=== PATIENT | female | born 1975 | race Caucasian/White ===

== ENCOUNTER → 2017-05-31 15:01 | Outpatient (CLI) | payer SELFPAY ==
--- NOTE | 2017-05-31 15:45 | CT_ITS ---
STUDY: CT SCAN OF THE LEFT HIP WITHOUT CONTRAST. REASON FOR EXAM: Female, 42 years old. Left hip pain. RADIATION DOSAGE (If Supplied By Facility): CTDIvol = ( 14.05 ) mGy, DLP = ( 403.31 ) mGycm. Individualized dose optimization techniques were used for this CT.? FLUOROSCOPY TIME (if supplied): ( ) minutes/seconds TECHNIQUE: Axial cuts were obtained through the region of the left without intravenous contrast infusion. Sagittal and coronal reconstruction images were obtained. 3-D images were also obtained. COMPARISON: None. FINDINGS: There is deformity of the femoral head with subchondral cystic/erosive changes. There is flattening of the articular surface of the femoral head. There is sclerosis and subchondral cystic changes of the acetabulum with thinning of the medial wall of the left acetabulum and protrusio acetabuli. There is gas in the left hip joint presenting vacuum phenomenon. The sacroiliac joint and to visualize symphysis pubis appear unremarkable. There is no evidence of acute fracture. There may be fluid or soft tissue density in the inferior aspect of the hip joint.. CT/Extremity Lower without Contra IMPRESSION: Narrowing, osteophytic changes and deformity of the left hip with protrusio acetabuli as described above. No demonstrated acute fracture. Electronically Signed: Mihc Chapa MD at 3:26 EST Tel , Service support ,
--- NOTE | 2017-05-31 16:03 | CT_ITS ---
STUDY: CT SCAN OF THE LEFT HIP WITHOUT CONTRAST. REASON FOR EXAM: Female, 42 years old. Left hip pain. RADIATION DOSAGE (If Supplied By Facility): CTDIvol = ( 14.05 ) mGy, DLP = ( 403.31 ) mGycm. Individualized dose optimization techniques were used for this CT.? FLUOROSCOPY TIME (if supplied): ( ) minutes/seconds TECHNIQUE: Axial cuts were obtained through the region of the left without intravenous contrast infusion. Sagittal and coronal reconstruction images were obtained. 3-D images were also obtained. COMPARISON: None. FINDINGS: There is deformity of the femoral head with subchondral cystic/erosive changes. There is flattening of the articular surface of the femoral head. There is sclerosis and subchondral cystic changes of the acetabulum with thinning of the medial wall of the left acetabulum and protrusio acetabuli. There is gas in the left hip joint presenting vacuum phenomenon. The sacroiliac joint and to visualize symphysis pubis appear unremarkable. There is no evidence of acute fracture. There may be fluid or soft tissue density in the inferior aspect of the hip joint.. CT/Coronals Sag Multi Obl 3-D Rec IMPRESSION: Narrowing, osteophytic changes and deformity of the left hip with protrusio acetabuli as described above. No demonstrated acute fracture. Electronically Signed: Mich Chapa MD at 3:26 EST Tel , Service support ,
== END ==
PROVIDERS: Family Provider Family Medicine; PCP Family Medicine; Visit Provider Specialist
DX: M25.552 Pain in left hip (principal)
CPT/HCPCS: 73700; 76377

== ENCOUNTER → 2017-06-26 11:55 | Outpatient (CLI) | payer SELFPAY ==
--- NOTE | 2017-06-26 12:05 | RAD_ITS ---
STUDY: X-RAY - CERVICAL SPINE REASON FOR EXAM: Female, 42 years old. Pre-op history of rheumatoid arthritis TECHNIQUE: 6 view(s) of the cervical spine were obtained. COMPARISON: None FINDINGS: There are degenerative changes of the anterior atlantoaxial articulation. The odontoid process shows a mild anterior angulation. There is straightening of the normal cervical lordosis. At C3-C4 there is slight anterolisthesis there is disc space narrowing. There is disc space narrowing at L4-L5 L5-S1 with spondylosis. There is multilevel facet arthropathy. Normal disc space heights. Normal visualized intervertebral neuroforamina. The soft tissue structures are unremarkable. RAD/Cerv Spine 4 or 5 Views IMPRESSION: Degenerative change. There is a mild angulated appearance of the odontoid without fracture line. This may represent a normal cortical variant, however recommend consideration for follow-up CT scan of the cervical spine to clarify. Degenerative change of the cervical spine. Electronically Signed: Kiah Berumen MD at 15:52 EDT Tel , Service support ,
== END ==
PROVIDERS: Family Provider Family Medicine; PCP Family Medicine; Visit Provider Family Medicine
DX: Z01.818 Encounter for other preprocedural examination (principal); M06.9 Rheumatoid arthritis, unspecified
CPT/HCPCS: 72050

== ENCOUNTER 2017-07-04 09:37 | Inpatient (IN) | payer SELFPAY ==
[2017-06-15 14:34] VITALS: BP 109/70; PULSE 92; RESP 16; TEMP 36; O2SAT 96; BMI 23.5
--- NOTE | 2017-06-15 14:58 | SDCEKG_ITS ---
Test Reason : Blood Pressure : / mmHG Vent. Rate : 088 BPM Atrial Rate : 088 BPM P-R Int : 148 ms QRS Dur : 072 ms QT Int : 348 ms P-R-T Axes : 069 064 048 degrees QTc Int : 421 ms Normal sinus rhythm Normal ECG Confirmed by DEE SCHMIDT ([id number]), image editor MOHSEN GURROLA ([id number]) on 06/18/2017 1:36:11 PM Referred By: Irwin Long Confirmed By:DEE SCHMIDT
[2017-06-15 15:48] LABS: Absolute Lymphocyte Count 2.45 X10^3/ul (0.83-4.51); Absolute Neutrophil Count 5.7 X10^3/uL (2.0-7.7); Basophil# 0.07 X10^3/uL; Basophil% 0.7 % (0-1); Hematocrit 33.8 % (37-47); Hemoglobin 10.8 g/dl (12.0-15.0); Lymphocyte # 2.45 X10^3/ul (4.0); Lymphocyte % 24.5 % (19-41); Mean Corpuscular Hgb 30.2 pg (27.0-32.0); Mean Corpuscular Volume 94.4 fL (81-99); Neutrophil # 5.67 X10^3/uL (2.7-7.7); Neutrophil % 56.7 % (47-70); POSITIVE COUNT NO; POSITIVE DIFFERENTIAL NO; POSITIVE MORPHOLOGY NO; Platelet Count 321 K/mm3 (150-450); RBC Distribution Width CV 13.8 % (11.6-14.6); RBC Distribution Width SD 47.8 fl (35.1-43.9); Red Blood Count 3.58 M/mm3 (4.2-5.4)
[2017-06-15 16:25] LABS: Anion Gap 12 (5-15); BUN 20 mg/dL (7-18); BUN/Creat Ratio 26.7 RATIO (10-20); Calcium,Total 8.1 mg/dL (8.5-10.1); Chloride 110 mmol/L (98-107); Creatinine, Serum 0.75 mg/dL (0.55-1.02); EST Glomerular Filtration Rate 91 mL/min (>60); Est Glom Filt Rate - Afr Amer 110 mL/min (>60); Estimated Creatinine Clearance 82.28 ml/min; Glucose 95 mg/dL (74-106); Potassium 3.5 mmol/L (3.5-5.1); Sodium Level 141 mmol/L (136-145)
--- NOTE | 2017-06-17 20:30 | PCM.HP.BLA ---
History and Physical DATE OF SURGERY: 07/04/2017 SCHEDULED PROCEDURE: Left total hip arthroplasty, posterior HISTORY OF PRESENT ILLNESS: This is a 42-year-old female who is been having ongoing pain in bilateral hips for approximately 11 years. She states the left hip is worse than the right hip. Pain is increased with going up and down stairs walking any amount of distance and sitting for extended periods of time. Pain is located in bilateral groins. Patient has a difficult time with activities of daily living including showering as well as shopping. Patient has tried rest, heat, elevation with minimal relief. She has tried home exercises with no relief in symptoms. She has been to a chiropractor in the past. Patient has been on oral medications consisting of ibuprofen. Patient also has been on prednisone, Humira, Enbrel, and lefluromide due to her rheumatoid arthritis. Patient is currently off Humira or Enbrel. She uses a walker for ambulatory assistance. She states her has to pick her up to place her in the car. Patient denies previous surgeries on bilateral hips. She currently denies any chest pain, shortness of breath, fevers chills, or recent infections. Patient has a medical history pertinent for hypertension and rheumatoid arthritis. After discussion with Dr. Conrado Long the patient would like to proceed with a left total hip arthroplasty posterior approach. We are obtaining surgical clearance from patient's primary care physician. REVIEW OF SYSTEMS: ROS: Const: Denies anorexia, anxiety, change in appetite, fever and weight change,hard of hearing, and vision problems. CV: Denies chest pain, heart murmur, irregular heartbeat and peripheral vascular disease. Resp: Denies asthma, cough, pneumonia, sleep apnea, shortness of breath, tuberculosis and wheezing. GI: Denies constipation, diarrhea, heartburn, nausea, bloody stools and vomiting, and difficulty swallowing. : . (F Genital Sx) Denies incontinence. Musculo: Denies leg swelling, trouble walking and weakness and limp. Skin: Denies Raynaud's, history of shingles and tattoo. Neuro: Denies ambulatory dysfunction, dizziness, numbness/tingling and tremor. Psych: Denies anxiety, depression, insomnia, mental illness and stress. Kar/Lymph: Denies anemia, bleeding/bruising tendency and past transfusion. Reviewed, no changes. PAST MEDICAL HISTORY: Advance Care Plan: No Advance Directives Effective Date: 06/07/2017 PMH: Medical Problems: Arthritis, High Blood Pressure, Depression, Rheumatoid Arthritis Accidents: None Surgical Hx: Section - X2 Anesthesia Complications: None Assistive Devices: Walker Reviewed, no changes. 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 Personal Habits: Cigarette Use: Never.Alcohol: Denies use.Drug Use: Denies Use.. (Enjoy Exercising) Reviewed, no changes. VITALS: Ht: 59 Wt: 114lb Wt k.710 BMI: 23.0 BP: 118/80 Pulse: 72 Resp: 16 T: 97.6 T: 36.4C ALLERGIES: No Known Drug Allergy MEDICATIONS: Ibuprofen 200 mg as needed, Leflunomide 20 mg 1 by mouth every day, Lisinopril 20 mg 1 by mouth every day, Prednisone 5 mg 1 tab PO daily, Metoprolol Tartrate 50 mg 1 tab PO bid, Sertraline HCL 50 mg 1 by mouth every day PRE-OP EXAM: General appearance:NORMAL Other: Eyes: Conjunctivae and lids: NORMAL Pupils: ERR Ears, Nose, Mouth, and Throat: NORMAL Other: Inspection of lips, teeth and gums: NORMAL Other: Neck: Examination of neck: no masses noted. Respiratory: Assessment of respiratory effort: NORMAL Other: Ausculation of lungs: clear to ausculation no wheeses, ronchi or rales. Cardiovascular: Ausculation of heart: regular rate and rhythem, no mummurs, gallops or rubs. Exam of carotid arteries: NORMAL Other: Gastrointestinal: Exam of abdomen: soft, nontender, nondistended bowel sounds present. PHYSICAL EXAMINATION: Patient ambulates with a walker. Range of motion of the left hip is 80? of flexion, 10? internal rotation, 20? external rotation. Left lower leg is 1 cm shorter. Sensations intact to light touch IMAGING STUDIES: 1. X-rays were obtained at [facility] [place] on June 07, 2017 including AP pelvis and AP pelvis with traction on the left lower extremity reveals severe osteoarthritis with complete loss of joint space bilaterally. Patient has severe bony erosion and protrusio acetabulum bilaterally with femoral heads protruding through the acetabular medial wall. There is thin element of bone medially. Trochanters are essentially medialized to the lateral edge of the acetabulum. Traction radiographs do not show significant ability to expose femoral necks. IMPRESSION 1. 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 Rheumatoid arthritis 3. Hypertension 4. Depression PLAN: Dr. Long did discuss and review with the patient all treatment options including surgical versus nonsurgical. Patient wishes to proceed with above-stated procedure. Potential risks, benefits, and complications of this procedure were discussed in detail including but not limited to , infection, nerve and blood vessel damage, persistent pain, numbness, tingling, paresthesias, blood clot, pulmonary embolism, and requirement for further surgery. The patient expressed full understanding has no further questions for the doctor. Patient does agree to proceed with the above-stated procedure and has signed the surgery consent form. ___ I have re-examined the patient. There are no clinical changes since date of exam. ___ See progress notes for changes. ___ Dictated on admission Date: Time: Signature:
--- NOTE | 2017-06-17 20:39 | HP.PCM_ITS ---
History and Physical DATE OF SURGERY: 07/04/2017 SCHEDULED PROCEDURE: Left total hip arthroplasty, posterior HISTORY OF PRESENT ILLNESS: This is a 42-year-old female who is been having ongoing pain in bilateral hips for approximately 11 years. She states the left hip is worse than the right hip. Pain is increased with going up and down stairs walking any amount of distance and sitting for extended periods of time. Pain is located in bilateral groins. Patient has a difficult time with activities of daily living including showering as well as shopping. Patient has tried rest, heat, elevation with minimal relief. She has tried home exercises with no relief in symptoms. She has been to a chiropractor in the past. Patient has been on oral medications consisting of ibuprofen. Patient also has been on prednisone, Humira, Enbrel, and lefluromide due to her rheumatoid arthritis. Patient is currently off Humira or Enbrel. She uses a walker for ambulatory assistance. She states her has to pick her up to place her in the car. Patient denies previous surgeries on bilateral hips. She currently denies any chest pain, shortness of breath, fevers chills, or recent infections. Patient has a medical history pertinent for hypertension and rheumatoid arthritis. After discussion with Dr. Conrado Long the patient would like to proceed with a left total hip arthroplasty posterior approach. We are obtaining surgical clearance from patient's primary care physician. REVIEW OF SYSTEMS: ROS: Const: Denies anorexia, anxiety, change in appetite, fever and weight change, hard of hearing, and vision problems. CV: Denies chest pain, heart murmur, irregular heartbeat and peripheral vascular disease. Resp: Denies asthma, cough, pneumonia, sleep apnea, shortness of breath, tuberculosis and wheezing. GI: Denies constipation, diarrhea, heartburn, nausea, bloody stools and vomiting , and difficulty swallowing. : . (F Genital Sx) Denies incontinence. Musculo: Denies leg swelling, trouble walking and weakness and limp. Skin: Denies Raynaud's, history of shingles and tattoo. Neuro: Denies ambulatory dysfunction, dizziness, numbness/tingling and tremor. Psych: Denies anxiety, depression, insomnia, mental illness and stress. Kar/Lymph: Denies anemia, bleeding/bruising tendency and past transfusion. Reviewed, no changes. PAST MEDICAL HISTORY: Advance Care Plan: No Advance Directives Effective Date: 06/07/2017 PMH: Medical Problems: Arthritis, High Blood Pressure, Depression, Rheumatoid Arthritis Accidents: None Surgical Hx: Section - X2 Anesthesia Complications: None Assistive Devices: Walker Reviewed, no changes. 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 Personal Habits: Cigarette Use: Never.Alcohol: Denies use.Drug Use: Denies Use.. (Enjoy Exercising) Reviewed, no changes. VITALS: Ht: 59 Wt: 114lb Wt k.710 BMI: 23.0 BP: 118/80 Pulse: 72 Resp: 16 T: 97.6 T: 36.4C ALLERGIES: No Known Drug Allergy MEDICATIONS: Ibuprofen 200 mg as needed, Leflunomide 20 mg 1 by mouth every day, Lisinopril 20 mg 1 by mouth every day, Prednisone 5 mg 1 tab PO daily, Metoprolol Tartrate 50 mg 1 tab PO bid, Sertraline HCL 50 mg 1 by mouth every day PRE-OP EXAM: General appearance:NORMAL Other: Eyes: Conjunctivae and lids: NORMAL Pupils: ERR Ears, Nose, Mouth, and Throat: NORMAL Other: Inspection of lips, teeth and gums: NORMAL Other: Neck: Examination of neck: no masses noted. Respiratory: Assessment of respiratory effort: NORMAL Other: Ausculation of lungs: clear to ausculation no wheeses, ronchi or rales. Cardiovascular: Ausculation of heart: regular rate and rhythem, no mummurs, gallops or rubs. Exam of carotid arteries: NORMAL Other: Gastrointestinal: Exam of abdomen: soft, nontender, nondistended bowel sounds present. PHYSICAL EXAMINATION: Patient ambulates with a walker. Range of motion of the left hip is 80? of flexion, 10? internal rotation, 20? external rotation. Left lower leg is 1 cm shorter. Sensations intact to light touch IMAGING STUDIES: 1. X-rays were obtained at [facility] [place] on June 07, 2017 including AP pelvis and AP pelvis with traction on the left lower extremity reveals severe osteoarthritis with complete loss of joint space bilaterally. Patient has severe bony erosion and protrusio acetabulum bilaterally with femoral heads protruding through the acetabular medial wall. There is thin element of bone medially. Trochanters are essentially medialized to the lateral edge of the acetabulum. Traction radiographs do not show significant ability to expose femoral necks. IMPRESSION 1. 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 Rheumatoid arthritis 3. Hypertension 4. Depression PLAN: Dr. Long did discuss and review with the patient all treatment options including surgical versus nonsurgical. Patient wishes to proceed with above- stated procedure. Potential risks, benefits, and complications of this procedure were discussed in detail including but not limited to , infection , nerve and blood vessel damage, persistent pain, numbness, tingling, paresthesias, blood clot, pulmonary embolism, and requirement for further surgery. The patient expressed full understanding has no further questions for the doctor. Patient does agree to proceed with the above-stated procedure and has signed the surgery consent form. ___ I have re-examined the patient. There are no clinical changes since date of exam. ___ See progress notes for changes. ___ Dictated on admission Date: Time: Signature:
[2017-07-04] VITALS (11 sets, daily range): BP systolic 118–151; BP diastolic 73–99; PULSE 63–113; RESP 16–18; TEMP 36.5–37.4; O2SAT 96–100; BMI 23.5
[2017-07-04 10:14] LABS: Internal QC Validated? YES +Cl - CLEAR BKGD; Pregnancy, Urine Negative Negative
[2017-07-04] MEDS: oxyCODONE HCl Cr 10 MG Tablet PO (10:36)
[2017-07-04] MEDS: Celecoxib 200 MG Capsule 400 MG PO (10:36)
[2017-07-04] MEDS: Acetaminophen 500 MG Tablet 1000 MG PO ×2 (10:36→21:32)
--- NOTE | 2017-07-04 12:00 | HIP_PTH ---
PATIENT: JERICA RAMOS LOC: [facility] U#:[id number] AGE/SX: 42/F ROOM: [facility]315 RE07/04/[address]: Dr. Irwin Long MD : 1975 BED: 1 DIS: 07/05/2017 SPEC #: [id number] RECD: 07/05/17 08:04 STATUS: NEEL RODDY #: [id number] SHIVANI: 07/04/17 12:[address]: Irwin Long DEPT: SURGICAL PATHOLOGY RECD BY: Juan M Marquez ENTERED: 07/05/17 08:05 SP TYPE: TOTAL HIP OTHR DR: Dr. Palomo Brown MD Tissues: Hip, NOS Procedures: Decalcification bone/plaque Surgery Specimen Level IV HEADER OPERATION: Total hip replacement, posterior PRE-OP DIAGNOSIS: Rheumatoid arthritis with rheumatoid factor left hip TISSUE SUBMITTED: Bone and soft tissue MICROSCOPIC DIAGNOSIS Bone and soft tissue of left hip, total hip resection: Severe degenerative joint disease. AM:ranjit 07/11/17 MICROSCOPIC DESCRIPTION Slides are reviewed. GROSS DESCRIPTION Received is one container labeled with the patient's name and designated bone and soft tissue hip, left. The specimen consists of a portion of left hip and articular surface that has a cap-like appearance and measures 4 x 4 x 2 cm. The articular surface displays prominent osteophyte formation, eburnation and bone erosion. Also present in the specimen container are multiple irregular fragments of bone reamings and pink-yellow soft tissue measuring in aggregate 9 x 6 x 2 cm. Accounting Technician sections are submitted in two cassettes after decalcification as follows: 1 ? bone reamings, 2 ? femoral head. / AM:ranjit 07/04/17 TC:5 CPT: 58166, 94841
[2017-07-04] MEDS: Cefazolin 2 GM in 0.9% Normal Saline 100 ML IV (12:18)
--- NOTE | 2017-07-04 14:50 | PCM.OPRPT ---
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 Description of Surgical Findings:: Stable hip. Left leg was lengthened. garment sewer hand: Kelby Schwarz Type of Anesthesia:: Spinal Anesthesiologist: Jacobo Sawyer Special Medications: 2 g Ancef, 1 g TXA at incision, 1 g TXA closure, 10 mg Decadron, joint cocktail (5 mg Duramorph, 30 mL of 0.5% Ropivicaine, 1000 units of epinephrine, 30 mg of Toradol) Specimen's removed: Bony cuts Estimated Blood Loss (mL): 150 Fluids Replaced: 1700 mL crystalloid Description of Procedure: Findings: Adequate reduction with stability of the hip and equal leg lengths measured intraoperatively. Components used: 1. [place] A [place] 33 mm offset stem 2. Britta tritanium 50 mm acetabular shell 2 screws 3. Britta X3 polyethylene liner, MDM outer 38 inner 22.2 4. [place] cobalt chromium 22.2 mm, 0 mm neck femoral head 5. 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 Risks and benefits were discussed with the patient which included but were not limited to blood loss, DVTs, PEs, infection, neurovascular damage, and dislocation. In light of all this patient did agree to proceed with a total hip arthroplasty. Bone quality anticipated leg lengthening we discussed leg length discrepancy while she awaits her contralateral side being done, nerve injury and palsy and failure as particularly high for her. Procedure: On the date of procedure the patient's L hip was marked in the preoperative area. Patient was then taken back to the operating room where anesthesia assumed control of the C-spine and airway and administered anesthetic. Patient was transferred to the operating table and placed in the lateral decubitus position with the affected hip up. The patient was secured in the bed with the lateral positioners and leg lengths were checked. The L lower extremity was then prepped out in a sterile fashion using chlorhexidine while the surgeon scrubbed. Upon reentering the room the L lower extremity was draped in the standard orthopedic fashion and the incision was marked. A timeout was called and everyone agreed upon the side, the site, the procedure be performed, antibiotics given, and patient's identity. At this time incision was made through skin, subcutaneous tissue, and fat down to fascia. The fascia was then incised and a Charley retractor was placed. The soft tissue was then cleared from the posterior external rotators and the piriformis was identified. Posterior structures and external rotators were carefully taken down these were severely contracted and were not tagged. As we were dissecting down the posterior structures was felt to be the femoral neck was noted to be the posterior acetabular rim. Once we did this we did not resect any further posteriorly. Once we are carefully able to expose the neck neck cut was performed in situ. Once this neck cut was performed in situ we were then able to retract the femur out of the way and expose the acetabulum and femoral head in situ. Alejandro corkscrew was then placed into the femoral head and it was removed from the joint. At this time all bony soft tissue debris was removed from the acetabulum. Our attention was then directed to the acetabulum and the anterior retractor was placed and a Gelpi was used to retract the posterior capsule superiorly. All soft tissue debris was removed from the pulvinar and labrum of the joint. The bony defect and medialization with no medial bone we had to use impaction grafting to restore medial bone stock. A small 38 mm reamer was used to roughen up the bone once all soft tissue was debrided leaving bleeding bone deep in the vault. This time the outer rim was reamed to 50 mm to obtain a good rim fit on a 50 mm component. 50 mm trial was placed it did not slid medially and gave us good fit. We elected to use a 50 mm titanium cluster hole cup this was opened. At this time femoral head cancellus bone was harvested using a reamer and rongeur this was mixed with allograft cancellous bone chips. A Vitoss bone foam was placed in the bottom of the vault to provide a floor for the graft. The graft was then placed into the vault and impacted using an acetabular liner impactor from the [employer] system. And the acetabulum was then reversed reamed with a 48 millimeters further impact the graft. At this time a and 50 mm [place] tritanium cup was opened and impacted into place. At this time 2 screws were placed in the safe zone and the tabular component remained well fixed. A trial MDM liner was placed. Attention was then turned to the femur where the proximal femur was appropriately exposed using a olguin retractor. The box spinner was used to remove the lateral bone. Canal finder was used to verify the canal. The proximal femoral femur was then sequentially broached to a size 33 liter broach which had an appropriate fit. The broach was left in place.Once it was securely fastened our attention was again turned towards the femur and the appropriate neck was chosen and a 22.2 mm head with 0 mm offset was trialed. The hip was properly reduced using traction and external rotation. Stability was checked with the appropriate amount of shuck, no impingement with external rotation, and stable at 90? flexion and 90? internal rotation. Leg lengths were checked and were found to be on the left as expected due to the deformity remaining on the right. Once the hip was determined to be stable the trial components were dislocated. Trial components were then removed and the wound was copiously irrigated out normal saline. The MDM liner was opened and impacted into place and found to be secure. Cement was mixed and asymmetric was placed. Bone was prepared for cement and the canal was pressurized. [place] stem was then cemented into place. Once the cement was cured, the neutral head was once again trialed and found to give appropriate leg lengths and stability of the hip. Final implants were opened trunnion was cleaned and final head was impacted into place after being assembled on the back table. Could not be repaired due to contractures. The fascia we did explore the length of the sciatic nerve and it appeared to be without excessive tension and without injury. Closure was then done using #1 Vicryl to close the fascia. A 2-0 Vicryl interrupted sutures were used to close the subcutaneous skin. Skin elvis were used for final skin closure. A sterile dressing was placed. Patient was awakened by anesthesia and transferred to the [facility]. Patient was then transferred to the PACU for recovery. Postoperative plan: Patient will get 24 hours postop antibiotics. Patient will get in-house physical therapy and will be weight-bear as tolerated. Patient will follow up in office in 2 weeks for a wound check and x-rays. During the course of the procedure the physician teaching assistant played a vital role. His intimate knowledge of my steps in the procedure aided in safe and expedient completion of the procedure. The PA played a vital rolls in positioning particularly in obtaining the appropriate positioning of the sacral bump. The PA was also vital in the retraction of soft tissues during the exposure and especially the femoral work as this is a vital part of the procedure to prevent complications and fractures. The PA was also vital and protecting soft tissues during times of bony cuts and reaming. He also played a vital role in closure with my direct supervision. The PA was also important during reduction and dislocation of the joint and trials intraoperatively. Grafts/Implants Used: Britta [place] - Complications none - Admit VTE Documentation VTE Present on Admission: No VTE Mechan Device Prophylaxis: SCD's, Thigh High MESERET Hose VTE Pharm Prophylaxis ordered?: Yes
[2017-07-04] MEDS: Scopolamine 1mg/72hr Patch 1 PATCH TD (15:37)
[2017-07-04] MEDS: Lactated Ringers 1,000 ML 125 ML IV (15:39)
--- NOTE | 2017-07-04 15:40 | RAD_ITS ---
STUDY: X-RAY - PELVIS AND LEFT HIP REASON FOR EXAM: Female, 42 years old. Postoperative exam TECHNIQUE: Radiological exam, hip, unilateral, with pelvis when performed; 2 or 3 views. COMPARISON: CT dated 05/31/2017. FINDINGS: The patient is status post left hip arthroplasty. The hardware is intact and alignment is satisfactory. There is no acute fracture or dislocation. There are severe degenerative changes in the right hip with acetabula protrusio noted. RAD/Hip Min 2 Views (Portable) IMPRESSION: Status post left hip arthroplasty with intact hardware and satisfactory alignment. Electronically Signed: Irwin Herrmann, at 19:59 EDT Tel , Service support ,
[2017-07-04] MEDS: Metoprolol Tartrate 50 MG Tablet PO (21:31)
[2017-07-04] MEDS: Cefazolin 1 GM/50 ML BAG IV (21:31)
[2017-07-04] MEDS: Senna/Docusate Sodium 1 Tablet 2 TABLET PO (21:32)
[2017-07-05] MEDS: Lactated Ringers 1,000 ML 15 ML IV (00:14)
[2017-07-05 03:42] VITALS: BP 111/70; PULSE 84; RESP 16; TEMP 36.7; O2SAT 97
[2017-07-05] MEDS: Cefazolin 1 GM/50 ML BAG IV (03:50)
[2017-07-05] MEDS: Acetaminophen 500 MG Tablet 1000 MG PO ×2 (05:48→14:18)
[2017-07-05 06:02] VITALS: RESP 16; O2SAT 97
[2017-07-05 06:25] LABS: Hematocrit 29.3 % (37-47); Hemoglobin 9.6 g/dl (12.0-15.0); Mean Corp Hgb Conc 32.8 g/gl (32-36); Mean Corpuscular Hgb 31.2 pg (27.0-32.0); Mean Corpuscular Volume 95.1 fL (81-99); Mean Platelet Vol. 10.2 fl (6.2-12.0); Platelet Count 276 K/mm3 (150-450); RBC Distribution Width CV 13.5 % (11.6-14.6); RBC Distribution Width SD 44.6 fl (35.1-43.9); Red Blood Count 3.08 M/mm3 (4.2-5.4)
[2017-07-05 06:31] LABS: Scan Indicated on CBC? Y/N NO
[2017-07-05 06:44] LABS: Anion Gap 10 (5-15); BUN 12 mg/dL (7-18); BUN/Creat Ratio 22.3 RATIO (10-20); Calcium,Total 8.1 mg/dL (8.5-10.1); Chloride 111 mmol/L (98-107); Creatinine, Serum 0.54 mg/dL (0.55-1.02); EST Glomerular Filtration Rate 133 mL/min (>60); Est Glom Filt Rate - Afr Amer 161 mL/min (>60); Estimated Creatinine Clearance 114.28 ml/min; Glucose 95 mg/dL (74-106); Potassium 3.9 mmol/L (3.5-5.1); Sodium Level 141 mmol/L (136-145)
[2017-07-05 08:25] VITALS: BP 113/72; PULSE 92; RESP 18; TEMP 36.7; O2SAT 97
[2017-07-05] MEDS: Folic Acid 1 MG Tablet PO (08:28)
[2017-07-05] MEDS: predniSONE 5 MG Tablet PO (08:28)
[2017-07-05] MEDS: Aspirin 325 MG Tablet PO (08:28)
[2017-07-05] MEDS: Ferrous Sulfate 325 MG Tablet PO (08:28)
[2017-07-05 08:30] VITALS: PULSE 72
--- NOTE | 2017-07-05 09:24 | PN.ORTHO_ITS ---
Subjective: The patient was sitting in bedside chair upon examination. Patient denies any chest pain, shortness of breath, dizziness, lightheadedness, nausea or vomiting , or calf pain. Pain is controlled on medications. No adverse overnight events. Patient states pain is significantly better in the left hip. She is only taking Tylenol for pain control. She is currently working with physical therapy. Plan is for discharge home when ready with home health physical therapy. Objective: Vital signs stable and afebrile. Patient is able to plantarflex and dorsiflex actively. Sensation is intact to light touch to saphenous, sural, superficial and deep peroneal, and tibial distribution. Dressing is with minimal drainage Negative Homans bilaterally, negative signs and symptoms of DVT. - Physical Exam General: Alert, Oriented x3, Cooperative, No apparent distress Vital Signs Temp Pulse Resp BP Pulse Ox 98.1 F 92 18 113/72 97 07/05/17 08:25 07/05/17 08:25 07/05/17 08:25 07/05/17 08:25 07/05/17 08:25 Oxygen Delivery Method Room Air Weight: 52.8 kg Body Mass Index (BMI) 23.5 Intake and Output for Last 24 Hours 07/03/17 07/04/17 07/05/17 23:59 23:59 23:59 Intake Total 2840 / 2840 1038 / 1038 Output Total 500 / 500 1220 / 1220 Balance 2340 / 2340 -182 / -182 Laboratory Tests Past 24 Hrs 07/04/17 07/05/17 07/05/17 09:51 05:50 05:50 WBC 16.0 H RBC 3.08 L Hgb 9.6 L Hct 29.3 L MCV 95.1 MCH 31.2 MCHC 32.8 RDW 13.5 RDW Differential 44.6 H Plt Count 276 MPV 10.2 Sodium 141 Potassium 3.9 Chloride 111 H Carbon Dioxide 20.0 L Anion Gap 10 BUN 12 Creatinine 0.54 L Estim Creat Clear Calc 114.28 Est GFR (MDRD) Af Amer 161 Est GFR (MDRD) Non-Af 133 BUN/Creatinine Ratio 22.3 H Glucose 95 Calcium 8.1 L Urine Test Negative Medical Necessity - Tobacco Use Smoking Status: Never smoker Assessment/Plan 1. S/P left total hip arthroplasty posterior approach with allograft and impaction grafting and acetabular bony defect POD #1 2. Continue Pain Medications: Tylenol and OxyIR 3. DVT Prophylaxis: Aspirin 325 mg twice daily 4. PT/OT: Toe-touch weightbearing for 6 weeks on the left lower extremity 5. H & H: 9.6/29.3, asymptomatic 6. Leukocytosis: Currently 16.0, afebrile. Patient did receive Decadron intraoperatively. 7. Encouraged Incentive Spirometry 8. Disposition: Overall patient is doing very well from pain management standpoint. If patient tolerates physical therapy well today the plan will be for possible discharge home with home health physical therapy. Patient is toe- touch weightbearing for 6 weeks postoperatively with posterior hip precautions. Patient will follow-up per postop instructions. Prescriptions are attached to chart.
--- NOTE | 2017-07-05 09:28 | PCM.DC.THR ---
Discharge Diet: No Restrictions Discharge Activity: May Not Drive - while taking narcotic pain medications. May shower in (days): 1 - Turned dressing away from water Ice area for (Minutes): 20 - Every 1-2 hours while awake Weight Bearing Status: Toe touch weight bearing - With walker for 6 weeks postoperatively Additional Activity Instructions:: Wear elastic stockings for 2 weeks. DO NOT use alcohol with narcotic pain medication. DO NOT make important decisions while taking narcotic medication. If you have problems with taking your medication (rash, itching, nausea, etc.) call the office at once. Call your doctor if your incision/area has: Increased Pain/ Swelling, Increased Redness, Foul Smelling Discharge Call your doctor if you observe: Fever of 101 or Higher Remove Dressing in (days):: 4 - Okay to remove on July 09, 2017 Allergies/Adverse Reactions: Allergies No Known Allergies Allergy (Verified 06/15/17 14:26) Medications to take at Discharge Leflunomide 20 mg PO DAILY 06/15/17 Lisinopril [Zestril] 20 mg PO DAILY 06/15/17 Metoprolol Tartrate [Lopressor (beta el)] 50 mg PO BID 06/15/17 Prednisone 5 mg PO DAILY 06/15/17 Sertraline HCl [Zoloft] 50 mg PO DAILY 06/15/17 Acetaminophen [Tylenol] 1,000 mg PO Q8 #90 tab 07/05/17 Aspirin 325 mg PO BIDCM #30 tab 07/05/17 Famotidine [Pepcid] 20 mg PO DAILY #30 tab 07/05/17 Oxycodone [Oxyir] 5 - 10 mg PO Q4H PRN PRN 5 Days #60 tab 07/05/17 Senna/Docusate Sodium [Senokot-S] 2 tab PO BID #20 tab 07/05/17 The following prescriptions were given: Oxycodone [Oxyir] 5 - 10 mg PO Q4H PRN PRN 5 Days #60 tab PRN Reason: Mod-Severe Pain (-01/09) Acetaminophen [Tylenol] 1,000 mg PO Q8 #90 tab Famotidine [Pepcid] 20 mg PO DAILY #30 tab Aspirin 325 mg PO BIDCM #30 tab Senna/Docusate Sodium [Senokot-S] 2 tab PO BID #20 tab Primary Care Physician: Palomo Brown [Primary Care Provider] - Please Follow Up With: Home health physical therapy Please Follow Up With: Kelby Schwarz PA-C When: 07/18/17 @ 9:15 am
--- NOTE | 2017-07-05 09:50 | CASEMGMT ---
Per RN CM handoff report, patient needs set-up with a walker and outpatient therapy at [facility]. RN BOB met with patient and patient informed RN BOB she didn't need a walker and would like home health therapy. RN BOB called [facility] [place] as they work with many [facility] families, and they are able to accept patient. Referral packet faxed to [phone]. Patient and spouse notified of arrangements and that [facility] would be calling to set-up an appnt time. RN BOB notified Eligio Hirsch PA-C, that patient does not need a walker and that she is requesting home health therapy. Eligio is in agreement with plan. Disposition: Home with support of family and [facility] referral for PT/OT JAKY Bajwa, RN-BC, CCM
[2017-07-05 11:01] VITALS: PULSE 72
[2017-07-05] MEDS: Leflunomide 10 MG TABLET 20 MG PO (11:01)
[2017-07-05] MEDS: Metoprolol Tartrate 50 MG Tablet PO (11:01)
[2017-07-05] MEDS: Senna/Docusate Sodium 1 Tablet 2 TABLET PO (11:02)
[2017-07-05] MEDS: Lisinopril 20 MG Tablet PO (11:02)
[2017-07-05] MEDS: Famotidine 20 MG Tablet PO (11:02)
[2017-07-05] MEDS: Sertraline 50 MG Tablet PO (11:04)
[2017-07-05] MEDS: oxyCODONE 5 MG Tablet PO (12:29)
[2017-07-05 16:09] VITALS: BP 94/62; PULSE 89; RESP 18; TEMP 37.2; O2SAT 94
== END 2017-07-05 17:16 | disposition home or self-care (01) | DRG 470 ==
PROVIDERS: Anesthesiology; Admitting Provider Specialist; Family Provider Family Medicine; PCP Family Medicine; Visit Provider Specialist
PROC: 0SRB0JZ Replacement of Left Hip Joint with Synthetic Substitute, Open Approach (ICD-10-PCS; CPT 27130; principal; 2017-07-04 11:35)
DX: M06.9 Rheumatoid arthritis, unspecified (principal); F32.9 Major depressive disorder, single episode, unspecified; M16.7 Other unilateral secondary osteoarthritis of hip; I10 Essential (primary) hypertension; M24.7 Protrusio acetabuli
CPT/HCPCS: 36415; 73502; 80048; 81025; 85025; 85027; 87077; 87081; 88305; 88311; 97110; 97116; 97162; 97166; 97530; 99251; J7120; G0463

== ENCOUNTER 2017-10-31 08:31 | Inpatient (IN) | payer SELFPAY ==
[2017-10-19 11:08] LABS: Absolute Lymphocyte Count 1.56 X10^3/ul (0.83-4.51); Absolute Neutrophil Count 10.8 X10^3/uL (2.0-7.7); Basophil# 0.04 X10^3/uL; Basophil% 0.3 % (0-1); Eosinophils% 2.3 % (0-5); Hematocrit 32.6 % (37-47); Hemoglobin 10.1 g/dl (12.0-15.0); Lymphocyte # 1.56 X10^3/ul (4.0); Lymphocyte % 11.9 % (19-41); Mean Corpuscular Hgb 26.2 pg (27.0-32.0); Mean Corpuscular Volume 84.7 fL (81-99); Mean Platelet Vol. 9.9 fl (6.2-12.0); Monocyte# 0.42 X10^3/uL; Monocyte% 3.2 % (0-10); Neutrophil # 10.83 X10^3/uL (2.7-7.7); Neutrophil % 82.2 % (47-70); Platelet Count 358 K/mm3 (150-450); RBC Distribution Width CV 17.5 % (11.6-14.6); RBC Distribution Width SD 55.1 fl (35.1-43.9); Red Blood Count 3.85 M/mm3 (4.2-5.4); White Blood Count 13.2 K/mm3 (4.4-11.0)
[2017-10-19 11:10] LABS: POSITIVE COUNT NO; POSITIVE DIFFERENTIAL NO; POSITIVE MORPHOLOGY NO
[2017-10-19 11:17] VITALS: BP 118/77; PULSE 72; RESP 16; TEMP 36.4; O2SAT 97; BMI 19.4
[2017-10-19 11:42] LABS: Anion Gap 10 (5-15); BUN 9 mg/dL (7-18); BUN/Creat Ratio 16.6 RATIO (10-20); Calcium,Total 8.1 mg/dL (8.5-10.1); Chloride 114 mmol/L (98-107); Creatinine, Serum 0.54 mg/dL (0.55-1.02); EST Glomerular Filtration Rate 131 mL/min (>60); Est Glom Filt Rate - Afr Amer 158 mL/min (>60); Estimated Creatinine Clearance 111.03 ml/min; Glucose 101 mg/dL (74-106); Potassium 3.9 mmol/L (3.5-5.1); Sodium Level 141 mmol/L (136-145)
[2017-10-31] VITALS (10 sets, daily range): BP systolic 101–130; BP diastolic 58–96; PULSE 64–89; RESP 16–18; TEMP 36.3–37.2; O2SAT 95–100; BMI 19.4
[2017-10-31] MEDS: oxyCODONE HCl Cr 10 MG Tablet PO (09:20)
[2017-10-31] MEDS: Acetaminophen 500 MG Tablet 1000 MG PO ×2 (09:20→23:04)
[2017-10-31] MEDS: Celecoxib 200 MG Capsule 400 MG PO (09:21)
[2017-10-31 09:48] LABS: Pregnancy, Serum, hCG Quali. NEGATIVE Negative (0-9 Nonpreg)
--- NOTE | 2017-10-31 11:16 | PCM.OPRPT ---
Report of Operation Date of Procedure: 10/31/17 Pre-Operative Diagnosis: Right hip secondary osteoarthritis, rheumatoid arthritis Post-Operative Diagnosis: Right hip secondary osteoarthritis, rheumatoid arthritis Surgery/Procedure Performed:: Right total hip replacement, posterior approach with graft Description of Surgical Findings:: Stable hip leg lengths were now equal. sql manager: Kelby Schwarz Type of Anesthesia:: Spinal Anesthesiologist: Stephen Collier Special Medications: 2 g Ancef, 1 g TXA at incision, 1 g TXA closure, 10 mg Decadron, joint cocktail (5 mg Duramorph, 30 mL of 0.5% Ropivicaine, 1000 units of epinephrine, 30 mg of Toradol) Estimated Blood Loss (mL): 200 Fluids Replaced: 1700 milliliters crystalloid Description of Procedure: Components used: 1. Britta [place] 33 mm offset stem 2. [place] tritanium 52 mm acetabular shell 2 screws 3. Britta X3 polyethylene liner, MDM outer 36 inner 22.2 4. Britta cobalt chromium 22.2 mm, +8 mm neck femoral head 5. 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 Risks and benefits were discussed with the patient which included but were not limited to blood loss, DVTs, PEs, infection, neurovascular damage, and dislocation. In light of all this patient did agree to proceed with a total hip arthroplasty. Bone quality anticipated leg lengthening we discussed leg length discrepancy while she awaits her contralateral side being done, nerve injury and palsy and failure as particularly high for her. Procedure: On the date of procedure the patient's R hip was marked in the preoperative area. Patient was then taken back to the operating room where anesthesia assumed control of the C-spine and airway and administered anesthetic. Patient was transferred to the operating table and placed in the lateral decubitus position with the affected hip up. The patient was secured in the bed with the lateral positioners and leg lengths were checked. The R lower extremity was then prepped out in a sterile fashion using chlorhexidine while the surgeon scrubbed. Upon reentering the room the R lower extremity was draped in the standard orthopedic fashion and the incision was marked. A timeout was called and everyone agreed upon the side, the site, the procedure be performed, antibiotics given, and patient's identity. At this time incision was made through skin, subcutaneous tissue, and fat down to fascia. The fascia was then incised and a Charley retractor was placed. The soft tissue was then cleared from the posterior external rotators and the piriformis was identified. Posterior structures and external rotators were carefully taken down these were severely contracted and were not tagged. As we were dissecting down the posterior structures was felt to be the femoral neck was noted to be the posterior acetabular rim. Once we did this we did not resect any further posteriorly. Once we are carefully able to expose the neck neck cut was performed in situ. Once this neck cut was performed in situ we were then able to retract the femur out of the way and expose the acetabulum and femoral head in situ. Alejandro corkscrew was then placed into the femoral head and it was removed from the joint. At this time all bony soft tissue debris was removed from the acetabulum. Our attention was then directed to the acetabulum and the anterior retractor was placed and a Gelpi was used to retract the posterior capsule superiorly. All soft tissue debris was removed from the pulvinar and labrum of the joint. The bony defect and medialization with no medial bone we had to use impaction grafting to restore medial bone stock. A small 39 mm reamer was used to roughen up the bone once all soft tissue was debrided leaving bleeding bone deep in the vault. This time the outer rim was reamed to 51 mm. 52 mm trial was placed it did not slid medially and gave us good fit. We elected to use a 52 mm tritanium cluster hole cup this was opened. At this time femoral head cancellus bone was harvested using a reamer and rongeur this was mixed with allograft cancellous bone chips. A Vitoss bone foam was placed in the bottom of the vault to provide a floor for the graft. The graft was then placed into the vault and impacted using an acetabular liner impactor from the [employer] system. And the acetabulum was then reversed reamed with a 48 millimeters further impact the graft. At this time a and 52 mm Britta tritanium cup was opened and impacted into place. At this time 2 screws were placed in the safe zone and the tabular component remained well fixed. A trial MDM liner was placed. Attention was then turned to the femur where the proximal femur was appropriately exposed using a olguin retractor. The box nailer was used to remove the lateral bone. Canal finder was used to verify the canal. The proximal femoral femur was then sequentially broached to a size 33 mm broach which had an appropriate fit. The broach was left in place.Once it was securely fastened our attention was again turned towards the femur and the appropriate neck was chosen and a 22.2 mm head with +8 mm offset was trialed. The hip was properly reduced using traction and external rotation. Stability was checked with the appropriate amount of shuck, no impingement with external rotation, and stable at 90? flexion and 90? internal rotation. Leg lengths were checked and were found to be on the left as expected due to the deformity remaining on the right. Once the hip was determined to be stable the trial components were dislocated. Trial components were then removed and the wound was copiously irrigated out normal saline. The MDM liner was opened and impacted into place and found to be secure. Cement was mixed and asymmetric was placed. Bone was prepared for cement and the canal was pressurized. [place] stem was then cemented into place. Once the cement was cured, the neutral head was once again trialed and found to give appropriate leg lengths and stability of the hip. Final implants were opened trunnion was cleaned and final head was impacted into place after being assembled on the back table. Could not be repaired due to contractures. The fascia we did explore the length of the sciatic nerve and it appeared to be without excessive tension and without injury. Closure was then done using #1 Vicryl to close the fascia. A 2-0 Vicryl interrupted sutures were used to close the subcutaneous skin. Skin elvis were used for final skin closure. A sterile dressing was placed. Patient was awakened by anesthesia and transferred to the [facility]. Patient was then transferred to the PACU for recovery. Postoperative plan: Patient will get 24 hours postop antibiotics. Patient will get in-house physical therapy and will be weight-bear as tolerated. Patient will follow up in office in 2 weeks for a wound check and x-rays. During the course of the procedure the physician anesthesiologist assistant certified played a vital role. His intimate knowledge of my steps in the procedure aided in safe and expedient completion of the procedure. The PA played a vital rolls in positioning particularly in obtaining the appropriate positioning of the sacral bump. The PA was also vital in the retraction of soft tissues during the exposure and especially the femoral work as this is a vital part of the procedure to prevent complications and fractures. The PA was also vital and protecting soft tissues during times of bony cuts and reaming. He also played a vital role in closure with my direct supervision. The PA was also important during reduction and dislocation of the joint and trials intraoperatively. Grafts/Implants Used: Britta [place], tritanium cup - Complications None - Admit VTE Documentation VTE Present on Admission: No VTE Mechan Device Prophylaxis: SCD's, Thigh High MESERET Hose VTE Pharm Prophylaxis ordered?: Yes
[2017-10-31] MEDS: Cefazolin 2 GM in 0.9% Normal Saline 100 ML IV (12:12)
--- NOTE | 2017-10-31 15:25 | RAD_ITS ---
STUDY: X-RAY - PELVIS AND RIGHT HIP REASON FOR EXAM: Female, 42 years old. Postop hip replacement TECHNIQUE: Radiological exam, hip, unilateral, with pelvis when performed; 2 or 3 views. COMPARISON: None. FINDINGS: There is a non-specific bowel gas pattern. Normal visualized soft tissue structures. The visualized pelvis is unremarkable. There is a new right hip arthroplasty with a satisfactory appearance and no evidence for complication. A left hip arthroplasty has a grossly satisfactory appearance on this single frontal view. RAD/Hip Min 2 Views (Portable) IMPRESSION: Satisfactory appearance of a right hip arthroplasty immediately after surgery. Electronically Signed: Blayne Erazo MD at 16:38 EDT , Service support ,
[2017-10-31] MEDS: 0.9% NaCl Peripheral Flush Adult/Peds IV (17:12)
[2017-10-31] MEDS: Morphine 2 MG/ML Syringe IV ×2 (17:12→17:52)
[2017-10-31] MEDS: Folic Acid 1 MG Tablet PO (18:54)
[2017-10-31] MEDS: Famotidine 20 MG Tablet PO (18:54)
[2017-10-31] MEDS: Ferrous Sulfate 325 MG Tablet PO (18:54)
[2017-10-31] MEDS: Senna/Docusate Sodium 1 Tablet 2 TABLET PO (18:54)
[2017-10-31] MEDS: Lactated Ringers 1,000 ML 125 ML IV (20:26)
[2017-10-31] MEDS: Cefazolin 1 GM/50 ML BAG IV (20:26)
[2017-10-31] MEDS: Ketorolac 15 MG/ML Vial IV (23:04)
[2017-11-01] VITALS (13 sets, daily range): BP systolic 88–107; BP diastolic 60–87; PULSE 80–112; RESP 16–20; TEMP 36.4–37.6; O2SAT 96–100
[2017-11-01] MEDS: oxyCODONE 5 MG Tablet PO ×3 (01:16→22:17)
[2017-11-01] MEDS: Cefazolin 1 GM/50 ML BAG IV (03:20)
[2017-11-01] MEDS: Acetaminophen 500 MG Tablet 1000 MG PO ×3 (05:18→22:18)
[2017-11-01 06:14] LABS: Hemoglobin 7.2 g/dl (12.0-15.0); Mean Corp Hgb Conc 31.3 g/gl (32-36); Mean Corpuscular Hgb 27.4 pg (27.0-32.0); Mean Corpuscular Volume 87.5 fL (81-99); Mean Platelet Vol. 10.3 fl (6.2-12.0); Platelet Count 272 K/mm3 (150-450); RBC Distribution Width CV 16.8 % (11.6-14.6); RBC Distribution Width SD 52.7 fl (35.1-43.9); Red Blood Count 2.63 M/mm3 (4.2-5.4); White Blood Count 13.7 K/mm3 (4.4-11.0)
[2017-11-01 06:17] LABS: Anion Gap 9 (5-15); BUN 12 mg/dL (7-18); BUN/Creat Ratio 24.8 RATIO (10-20); Calcium,Total 7.6 mg/dL (8.5-10.1); Chloride 114 mmol/L (98-107); Creatinine, Serum 0.48 mg/dL (0.55-1.02); EST Glomerular Filtration Rate 150 mL/min (>60); Est Glom Filt Rate - Afr Amer 181 mL/min (>60); Estimated Creatinine Clearance 124.91 ml/min; Glucose 97 mg/dL (74-106); Potassium 3.7 mmol/L (3.5-5.1); Sodium Level 145 mmol/L (136-145)
[2017-11-01 06:37] LABS: Scan Indicated on CBC? Y/N NO
--- NOTE | 2017-11-01 09:30 | CASEMGMT ---
RICHMOND ROJAS Face to Face with patient for initial transition planning/care coordination assessment. RN BOB introduced self and role at [facility]. Patient lying in bed, alert and oriented. Patient willing to participate in assessment and is able to answer all questions appropriately. Care providers, pharmacy, and demographics verified. See link attached. Patient wishes to discharge to in-law's home with [facility]. RICHMOND ROJAS verified in-law's address and patient phone number. RN CM called [facility] and they are able to accept patient. CM will faxed referral and order to [facility]. Patient states she has no further needs or concerns at this time. CM to follow for discharge planning needs that may arise. Disposition Plan: Patient to discharge home with home therapy, family support, and follow-up plans in place.
--- NOTE | 2017-11-01 09:41 | PN.ORTHO_ITS ---
Subjective: The patient was sitting in bed upon examination. Patient denies any chest pain , shortness of breath, dizziness, lightheadedness, nausea or vomiting, or calf pain. Pain is controlled on medications. No adverse overnight events. Patient has had 2 previous blood pressure readings of low blood pressure. Hemoglobin currently is 7.2. Patient's hemoglobin at preadmission testing was 10.1. Patient currently denies any symptoms of dizziness, lightheadedness or feelings of passing out but does state she does feel tired. Patient's heart rate has also jumped from the 80s up to 112. Patient tolerated physical therapy very well without any symptoms. Objective: Patient afebrile. Most recent vitals patient's blood pressure is 107/87 and heart rate 112. Patient is able to plantarflex and dorsiflex actively. Sensation is intact to light touch to saphenous, sural, superficial and deep peroneal, and tibial distribution. Dressing is clean dry and intact. Negative Homans bilaterally, negative signs and symptoms of DVT. - Physical Exam General: Alert, Oriented x3, Cooperative, No apparent distress Vital Signs Temp Pulse Resp BP Pulse Ox 97.6 F L 88 16 92/60 98 11/01/17 05:00 11/01/17 05:00 11/01/17 05:00 11/01/17 05:00 11/01/17 05:00 Oxygen Delivery Method Room Air Weight: 51.3 kg Body Mass Index (BMI) 19.4 Intake and Output for Last 24 Hours 10/30/17 10/31/17 11/01/17 23:59 23:59 23:59 Intake Total 2700 / 2700 3877 / 3877 Balance 2700 / 2700 3877 / 3877 Laboratory Tests Past 24 Hrs 10/31/17 11/01/17 11/01/17 09:15 05:30 05:30 WBC 13.7 H RBC 2.63 L Hgb 7.2 L Hct 23.0 L MCV 87.5 MCH 27.4 MCHC 31.3 L RDW 16.8 H RDW Differential 52.7 H Plt Count 272 MPV 10.3 Sodium 145 Potassium 3.7 Chloride 114 H Carbon Dioxide 22.0 Anion Gap 9 BUN 12 Creatinine 0.48 L Estim Creat Clear Calc 124.91 Est GFR (MDRD) Af Amer 181 Est GFR (MDRD) Non-Af 150 BUN/Creatinine Ratio 24.8 H Glucose 97 Calcium 7.6 L Serum , Qual NEGATIVE Medical Necessity - Tobacco Use Smoking Status: Never smoker Assessment/Plan 1. S/P right total hip arthroplasty posterior approach with graft POD #1 2. Continue Pain Medications: Tylenol and OxyIR 3. DVT Prophylaxis: Aspirin 325 mg twice daily 4. PT/OT: Toe-touch weightbearing ?6 weeks, posterior hip dislocation precautions ?3 months postoperatively. 5. Postoperative anemia secondary to blood loss and surgery. Patient has had 2 major surgeries over the past 4 months and does have underlying rheumatoid arthritis. Patient's H & H: 7.2/23.0, patient does state she feels tired but denies dizziness, lightheadedness, or feelings of passing out. Patient has had low blood pressure overnight and now with a heart rate of 112. She currently denies any chest pain, shortness of breath. Patient tolerated physical therapy when she is up walking without dizziness, lightheadedness, or feeling of passing out. Case was discussed with Dr. Irwin Long and we will proceed with 2 units of packed red blood cells. 6. Leukocytosis: Currently 13.7, afebrile. 7. Encouraged Incentive Spirometry 8. Disposition: Plan will be for possible discharge home tomorrow. Patient will undergo 2 units of packed red blood cells due to postoperative anemia. We will repeat CBC tomorrow. As long as patient is doing well with pain being well controlled possible discharge home tomorrow.
[2017-11-01] MEDS: Famotidine 20 MG Tablet PO (10:19)
[2017-11-01] MEDS: Folic Acid 1 MG Tablet PO ×2 (10:19→18:16)
[2017-11-01] MEDS: Aspirin 325 MG Tablet PO ×2 (10:20→18:16)
[2017-11-01] MEDS: Senna/Docusate Sodium 1 Tablet 2 TABLET PO ×2 (10:20→22:18)
[2017-11-01] MEDS: Ferrous Sulfate 325 MG Tablet PO ×2 (10:21→18:16)
--- NOTE | 2017-11-01 13:45 | CASEMGMT ---
RN CM NOTE: Facesheet, PT order, H/P, and Post-Op Total Knee and Hip Instructions faxed to [facility] @ [phone]. CM to follow this pt for safe discharge. Mariann SHETTYN RN CM
[2017-11-02 03:16] VITALS: BP 105/69; PULSE 86; RESP 16; TEMP 36.6; O2SAT 94
[2017-11-02 05:26] LABS: Hematocrit 32.6 % (37-47); Hemoglobin 10.6 g/dl (12.0-15.0); Mean Corp Hgb Conc 32.5 g/gl (32-36); Mean Corpuscular Hgb 28.6 pg (27.0-32.0); Mean Corpuscular Volume 87.9 fL (81-99); Mean Platelet Vol. 10.1 fl (6.2-12.0); Platelet Count 249 K/mm3 (150-450); RBC Distribution Width CV 15.9 % (11.6-14.6); RBC Distribution Width SD 50.4 fl (35.1-43.9); Red Blood Count 3.71 M/mm3 (4.2-5.4); White Blood Count 11.1 K/mm3 (4.4-11.0)
[2017-11-02 05:28] LABS: Scan Indicated on CBC? Y/N NO
[2017-11-02] MEDS: Acetaminophen 500 MG Tablet 1000 MG PO ×2 (06:57→13:46)
[2017-11-02] MEDS: oxyCODONE 5 MG Tablet PO ×2 (07:00→12:22)
--- NOTE | 2017-11-02 07:19 | PCM.PN.ORT ---
Subjective: The patient was sitting in bedside chair upon examination. Patient denies any chest pain, shortness of breath, dizziness, lightheadedness, nausea or vomiting, or calf pain. Pain is controlled on medications. No adverse overnight events. Patient states she feels much better after getting packed red blood cells yesterday. Her hemoglobin has significantly improved. Patient states the pain is controlled on medications but she does have some soreness in the right hip. She is tolerating physical therapy. Patient wishes to try to go home today. Objective: Vital signs stable and afebrile. Patient is able to plantarflex and dorsiflex actively. Sensation is intact to light touch to saphenous, sural, superficial and deep peroneal, and tibial distribution. Dressing is clean dry and intact. Negative Homans bilaterally, negative signs and symptoms of DVT. - Physical Exam General: Alert, Oriented x3, Cooperative, No apparent distress Vital Signs Temp Pulse Resp BP Pulse Ox 98 F 86 16 105/69 94 11/02/17 03:16 11/02/17 03:16 11/02/17 03:16 11/02/17 03:16 11/02/17 03:16 Oxygen Flow Rate (L/min) 2 Oxygen Delivery Method Room Air Weight: 51.3 kg Body Mass Index (BMI) 19.4 Intake and Output for Last 24 Hours 10/31/17 11/01/17 11/02/17 23:59 23:59 23:59 Intake Total 2700 / 2700 5963 / 5963 900 / 900 Balance 2700 / 2700 5963 / 5963 900 / 900 Laboratory Tests Past 24 Hrs 11/01/17 11/02/17 10:45 05:00 WBC 11.1 H RBC 3.71 L Hgb 10.6 L Hct 32.6 L MCV 87.9 MCH 28.6 MCHC 32.5 RDW 15.9 H RDW Differential 50.4 H Plt Count 249 MPV 10.1 Blood Type A POSITIVE Antibody Screen NEGATIVE Crossmatch See Detail Medical Necessity - Tobacco Use Smoking Status: Never smoker Assessment/Plan 1. S/P right total hip arthroplasty posterior approach with graft POD #2 2. Continue Pain Medications: Tylenol and OxyIR 3. DVT Prophylaxis: Aspirin 325 mg twice daily 4. PT/OT: Toe-touch weightbearing ?6 weeks, posterior hip dislocation precautions ?3 months postoperatively. 5. Postoperative anemia secondary to blood loss and surgery. Patient has had 2 major surgeries over the past 4 months and does have underlying rheumatoid arthritis. Patient's H & H: 10.6/32.6, patient did receive 2 units of packed red blood cells on November 01, 2017. She is currently asymptomatic and feeling much better. 6. Leukocytosis: Trending down currently 11.1, afebrile. Patient did receive Decadron intraoperatively 7. Encouraged Incentive Spirometry 8. Disposition: Orthopedically stable, plan will be for discharge home today. Patient would like prescriptions sent to [facility] and [place]. Patient will follow-up per postop instructions.
--- NOTE | 2017-11-02 07:22 | PN.ORTHO_ITS ---
Subjective: The patient was sitting in bedside chair upon examination. Patient denies any chest pain, shortness of breath, dizziness, lightheadedness, nausea or vomiting , or calf pain. Pain is controlled on medications. No adverse overnight events. Patient states she feels much better after getting packed red blood cells yesterday. Her hemoglobin has significantly improved. Patient states the pain is controlled on medications but she does have some soreness in the right hip. She is tolerating physical therapy. Patient wishes to try to go home today. Objective: Vital signs stable and afebrile. Patient is able to plantarflex and dorsiflex actively. Sensation is intact to light touch to saphenous, sural, superficial and deep peroneal, and tibial distribution. Dressing is clean dry and intact. Negative Homans bilaterally, negative signs and symptoms of DVT. - Physical Exam General: Alert, Oriented x3, Cooperative, No apparent distress Vital Signs Temp Pulse Resp BP Pulse Ox 98 F 86 16 105/69 94 11/02/17 03:16 11/02/17 03:16 11/02/17 03:16 11/02/17 03:16 11/02/17 03:16 Oxygen Flow Rate (L/min) 2 Oxygen Delivery Method Room Air Weight: 51.3 kg Body Mass Index (BMI) 19.4 Intake and Output for Last 24 Hours 10/31/17 11/01/17 11/02/17 23:59 23:59 23:59 Intake Total 2700 / 2700 5963 / 5963 900 / 900 Balance 2700 / 2700 5963 / 5963 900 / 900 Laboratory Tests Past 24 Hrs 11/01/17 11/02/17 10:45 05:00 WBC 11.1 H RBC 3.71 L Hgb 10.6 L Hct 32.6 L MCV 87.9 MCH 28.6 MCHC 32.5 RDW 15.9 H RDW Differential 50.4 H Plt Count 249 MPV 10.1 Blood Type A POSITIVE Antibody Screen NEGATIVE Crossmatch See Detail Medical Necessity - Tobacco Use Smoking Status: Never smoker Assessment/Plan 1. S/P right total hip arthroplasty posterior approach with graft POD #2 2. Continue Pain Medications: Tylenol and OxyIR 3. DVT Prophylaxis: Aspirin 325 mg twice daily 4. PT/OT: Toe-touch weightbearing ?6 weeks, posterior hip dislocation precautions ?3 months postoperatively. 5. Postoperative anemia secondary to blood loss and surgery. Patient has had 2 major surgeries over the past 4 months and does have underlying rheumatoid arthritis. Patient's H & H: 10.6/32.6, patient did receive 2 units of packed red blood cells on November 01, 2017. She is currently asymptomatic and feeling much better. 6. Leukocytosis: Trending down currently 11.1, afebrile. Patient did receive Decadron intraoperatively 7. Encouraged Incentive Spirometry 8. Disposition: Orthopedically stable, plan will be for discharge home today. Patient would like prescriptions sent to [facility] and [facility]. Patient will follow-up per postop instructions.
--- NOTE | 2017-11-02 07:27 | PCM.DC.THR ---
Discharge Diet: No Restrictions Discharge Activity: May Not Drive - while taking narcotic pain medications. May shower in (days): 3 - only if incision is dry and without drainage. Do NOT soak/submerge in tub/pool/crowder/stream/hot tub. Ice area for (Minutes): 20 - Every 1-2 hours while awake Weight Bearing Status: Toe touch weight bearing - ?6 weeks with use of walker Elevate: Operative Extremity Additional Activity Instructions:: Wear elastic stockings for 2 weeks. DO NOT use alcohol with narcotic pain medication. DO NOT make important decisions while taking narcotic medication. If you have problems with taking your medication (rash, itching, nausea, etc.) call the office at once. Call your doctor if your incision/area has: Increased Pain/ Swelling, Increased Redness, Foul Smelling Discharge Call your doctor if you observe: Fever of 101 or Higher Remove Dressing in (days):: 3 - Okay to remove dressing on November 05, 2017 Additional Instructions: Follow-up per [facility] postop instructions Physical therapy: Toe-touch weightbearing with use of walker ?6 weeks. Follow posterior hip dislocation precautions for 3 months postoperatively with no hip flexion greater than 90? and no crossing of the legs. Allergies/Adverse Reactions: Allergies No Known Allergies Allergy (Verified 10/19/17 11:06) Medications to take at Discharge Leflunomide 20 mg PO DAILY 06/15/17 Lisinopril [Zestril] 20 mg PO DAILY 06/15/17 Metoprolol Tartrate [Lopressor (beta el)] 50 mg PO BID 06/15/17 Prednisone 5 mg PO DAILY 06/15/17 Sertraline HCl [Zoloft] 50 mg PO DAILY 06/15/17 Acetaminophen [Tylenol] 1,000 mg PO Q8 #90 tab 11/02/17 Aspirin 325 mg PO BIDCM #30 tab 11/02/17 Famotidine [Pepcid] 20 mg PO DAILY #30 tab 11/02/17 Ferrous Sulfate 325 mg PO BIDCM #28 tab 11/02/17 Folic Acid 1 mg PO BIDCM #28 tab 11/02/17 Oxycodone [Oxyir] 5 - 10 mg PO Q4H PRN PRN 5 Days #60 tablet 11/02/17 Senna/Docusate Sodium [Senokot-S] 2 tab PO BID #20 tab 11/02/17 The following prescriptions were given: Oxycodone [Oxyir] 5 - 10 mg PO Q4H PRN PRN 5 Days #60 tablet PRN Reason: Mod-Severe Pain (-01/09) Acetaminophen [Tylenol] 1,000 mg PO Q8 #90 tab Famotidine [Pepcid] 20 mg PO DAILY #30 tab Aspirin 325 mg PO BIDCM #30 tab Ferrous Sulfate 325 mg PO BIDCM #28 tab Folic Acid 1 mg PO BIDCM #28 tab Senna/Docusate Sodium [Senokot-S] 2 tab PO BID #20 tab Primary Care Physician: Palomo Brown [Primary Care Provider] - Test Results: Test results from this visit will be discussed in further detail at your follow-up appointment, if applicable. Please Follow Up With: Will schedule Physical Therapy with [facility] When: call Joya Gutierrez to have prescription faxed Please Follow Up With: Kelby Schwarz PA-C When: 11/14/17 @ 8:15 am
[2017-11-02 09:00] VITALS: BP 119/73; PULSE 109; RESP 18; TEMP 37.1; O2SAT 97
[2017-11-02] MEDS: Sertraline 50 MG Tablet PO (09:19)
[2017-11-02] MEDS: predniSONE 5 MG Tablet PO (09:19)
[2017-11-02] MEDS: Famotidine 20 MG Tablet PO (09:20)
[2017-11-02] MEDS: Aspirin 325 MG Tablet PO (09:20)
[2017-11-02] MEDS: Senna/Docusate Sodium 1 Tablet 2 TABLET PO (09:20)
[2017-11-02] MEDS: Folic Acid 1 MG Tablet PO (09:20)
[2017-11-02] MEDS: Ferrous Sulfate 325 MG Tablet PO (09:20)
[2017-11-02] MEDS: Leflunomide 10 MG TABLET 20 MG PO (09:23)
[2017-11-02 13:30] VITALS: BP 140/75; PULSE 102; RESP 18; TEMP 36.6; O2SAT 96
== END 2017-11-02 13:53 | disposition home health service (06) | DRG 470 ==
LOC: ACINP 08:38 → MS3 11:17
PROVIDERS: Anesthesiology; Physician Assistant; Admitting Provider Specialist; Family Provider Family Medicine; PCP Family Medicine; Visit Provider Specialist
PROC: 0SR90JZ Replacement of Right Hip Joint with Synthetic Substitute, Open Approach (ICD-10-PCS; CPT 27130; principal; 2017-10-31 10:35)
DX: M16.7 Other unilateral secondary osteoarthritis of hip (principal); D62 Acute posthemorrhagic anemia; M06.9 Rheumatoid arthritis, unspecified; I10 Essential (primary) hypertension; F32.9 Major depressive disorder, single episode, unspecified; Z79.82 Long term (current) use of aspirin
CPT/HCPCS: 36415; 73502; 80048; 84703; 85025; 85027; 86850; 86900; 86920; 86922; 87077; 87081; 97110; 97116; 97162; 97165; 97535; 99251; C1776; J7040; J7120; P9016; A4216; G0463

== ENCOUNTER → 2020-01-05 07:38 | Outpatient (CLI) | payer SELFPAY ==
[2017-10-31 09:09] VITALS: BMI 19.4
--- NOTE | 2020-01-05 08:02 | CT_ITS ---
STUDY: CT RIGHT HIP , KNEE AND ANKLE WITHOUT CONTRAST REASON FOR EXAM: Female, 44 years old. RADIATION DOSAGE (If Supplied By Facility): CTDIvol = ( 17.25 ) mGy, DLP = ( 1062.69 ) mGycm TECHNIQUE: Thin section transaxial imaging of the hip knee and ankle was obtained, with sagittal and coronal reconstructed images. Individualized dose optimization techniques were used for this CT. COMPARISON: None. FINDINGS: HIP: Status post total hip arthroplasty. The prosthesis appears located. No ostial lysis to suggest loosening.. Normal visualized superior and inferior pubic rami and ischial tuberosities. KNEE: Normal medial femoral condyle and medial tibial plateau. Severe joint space narrowing, osteophyte formation, and subchondral sclerosis and subchondral cyst formation medial compartment consistent with severe arthrosis. Normal lateral femoral condyle and lateral tibial plateau. Moderate joint space narrowing, osteophyte formation, and subchondral sclerosis of the lateral facet joint consistent with moderate arthrosis. Normal proximal tibiofibular articulation. 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 There is an unusual fluid collection about the knee joint which may represent a joint effusion along the anteromedial aspect of the medial tibial plateau which contains bubbles of air likely from recent injection. Clinical correlation is recommended. Otherwise infection would be of concern. The quadriceps tendon is grossly normal. The patellar tendon is grossly normal. Normal Hoffa''s fat pad. The soft tissues are unremarkable. ANKLE: Normal visualized distal tibia and fibula. Normal tibiotalar articulation and talar dome. Normal talus, calcaneus, navicular and cuboid tarsal bones. Severe talonavicular joint arthrosis to Normal navicular-cuneiform, cuneiform tarsal bones and intercuneiform articulations. Normal tarsometatarsal articulations and visualized metatarsi. The soft tissue structures are grossly normal. CT/Extremity Lower without Contra IMPRESSION: 1. Status post right hip arthroplasty. 2. Severe knee arthrosis particularly of the medial compartment. 3. 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 4. Unusual focal knee joint effusion medially containing bubbles of air likely from recent injection. Clinical correlation is recommended to exclude infection. 5. Severe talonavicular joint arthrosis. Electronically Signed: Ralf Barboza MD at 11:14 EDT Tel , Service support ,
== END ==
PROVIDERS: PCP Family Medicine; Referring Provider Specialist; Visit Provider Specialist
DX: M05.861 Other rheumatoid arthritis with rheumatoid factor of right knee (principal)
CPT/HCPCS: 73700

== ENCOUNTER 2020-01-21 09:10 | Observation (INO) | payer SELFPAY, OTHER ==
[2017-10-31 09:09] VITALS: BMI 19.4
--- NOTE | 2020-01-09 14:45 | PCM.HP.BLA ---
History and Physical History and Physical Patient Name: Camelia Escobar : 1975 From: [facility] JUAN NP DATE OF SURGERY: 01/21/2020 SCHEDULED PROCEDURE: Right total knee arthroplasty HISTORY OF PRESENT ILLNESS: Preoperative history and physical exam was performed on January 05, 2020. This is a 44-year-old female who has been experiencing right knee pain for over a year. She describes her pain as sharp. The pain is 5 on a scale of 10 on average and 7 on a scale of 10 at worst. The pain is made worse with stairs, sitting for prolonged periods of time and walking. The patient reports inability to perform activities of daily living due to the significant right knee pain including housework. Previous conservative measures consist of rest, heat and corticosteroid injections with mild relief. She has attempted nonsteroidal anti-inflammatories with minimal relief. She reports the use of a knee brace. The patient has a medical history pertinent for hypertension and rheumatoid arthritis. The patient takes prednisone and Leflunomide for the rheumatoid arthritis. The patient has had bilateral hip replacements by Dr. Irwin Long. Surgical clearance will be obtained from her primary care provider Dr. Brown and cupola patcher helper Dr. Matteo Kim. She denies chest pain, fevers, chills, shortness of breath, difficult to breathing or recent infections. After failing conservative measures and discussing treatment options with Dr. Irwin Long the patient does wish to proceed with a right total knee arthroplasty. REVIEW OF SYSTEMS: ROS: Const: Denies anorexia, anxiety, change in appetite, fever and weight change,hard of hearing, and vision problems. CV: Denies chest pain, heart murmur, irregular heartbeat and peripheral vascular disease. Resp: Denies asthma, cough, pneumonia, sleep apnea, shortness of breath, tuberculosis and wheezing. GI: Denies constipation, diarrhea, heartburn, nausea, bloody stools and vomiting, and difficulty swallowing. : Denies incontinence. Musculo: Denies leg swelling, trouble walking and weakness and limp. Skin: Denies Raynaud's, history of shingles and tattoo. Neuro: Denies ambulatory dysfunction, dizziness, numbness/tingling and tremor. Psych: Denies anxiety, depression, insomnia, mental illness and stress. Kar/Lymph: Denies anemia, bleeding/bruising tendency and past transfusion. Reviewed, no changes. PAST MEDICAL HISTORY: Advance Care Plan: No Advance Directives Effective Date: 06/07/2017 PMH: Medical Problems: Arthritis, High Blood Pressure, Depression, Rheumatoid Arthritis Accidents: None Surgical Hx: Section - X2 Hip Replacement Lt - (07/04/2017) [facility] RT THR - (10/31/2017) [facility]W @ [facility] Appendectomy - (04/2018) [facility] Anesthesia Complications: None Assistive Devices: Walker, Glasses Reviewed and updated. 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 Personal Habits: Cigarette Use: Never.Alcohol: Denies use.Drug Use: Denies Use.Enjoy Exercising: Exercises 1-3 X/Week. Reviewed and updated. VITALS: Ht: 60 Wt: 119lb Wt k.978 BMI: 23.2 BP: 119/86 Pulse: 93 Resp: 16 T: 97.2 T: 36.2C ALLERGIES: No Known Drug Allergy MEDICATIONS: Tramadol HCL 50 mg 1 by mouth every 6 hours as needed pain, Leflunomide 20 mg 1 by mouth every day, Lisinopril 20 mg 1 by mouth every day, Prednisone 5 mg 1 tab PO daily, Sertraline HCL 50 mg 1 by mouth every day, Ibuprofen 200 mg prn PRE-OP EXAM: General appearance:NORMAL Other: Eyes: Conjunctivae and lids: NORMAL Pupils: ERR Ears, Nose, Mouth, and Throat: NORMAL Other: Inspection of lips, teeth and gums: NORMAL Other: Respiratory: Assessment of respiratory effort: NORMAL Other: Auscultation of lungs: clear to auscultation no wheezes, rhonchi or rales. Cardiovascular: Auscultation of heart: regular rate and rhythm, no murmurs, gallops or rubs. Gastrointestinal: Exam of abdomen: soft, nontender, nondistended bowel sounds present. Neurological: see below Psychiatric: Orientation to time, place and person: NORMAL Other: Mood and affect: NORMAL Other: PHYSICAL EXAMINATION: Patient ambulates with an antalgic gait. Skin is warm, dry and intact to the right knee. Moderate effusion. Tenderness with palpation over the medial joint line. Crepitus with range of motion. Stable to varus and valgus stress testing. Flexion to 115. Sensation intact to light touch. IMAGING STUDIES: 4 views of right knee including sunrise and lateral and bilateral weight-bearing AP and tunnel views reviewed reveals the right knee with varus alignment and lateral joint space narrowing, subchondral sclerosis and osteophyte formation consistent with severe stage IV tricompartmental osteoarthritis. IMPRESSION: 1. Osteoarthritis, right knee 2. Rheumatoid arthritis 3. Hypertension 4. Depression PLAN: Dr. Irwin Long did discuss and review with the patient all treatment options including surgical versus nonsurgical. The patient does wish to proceed with the above-stated procedure. Potential risk, benefits and complications of the procedure were discussed in detail including but not limited to , infection, nerve and blood vessel damage, persistent pain, numbness, tingling, paresthesia, blood clot, pulmonary embolism and requirement for possible further surgery. The patient expressed full understanding and has no further questions for the doctor. The patient does agree to proceed with the above-stated procedure and has signed the surgery consent form. Discussed with the patient the risks associated with the COVID-19 virus including the risk of exposure while at the hospital. The patient was reassured local hospitals have low infection rates and taken all necessary precautions to limit patient exposure to COVID-19. Limiting the patient's time in the hospital may decrease their exposure to COVID-19. The patient was notified that we will need to comply with any screening or testing the hospital wishes to perform and that surgery may be delayed for any positive test results. This dictation was created using voice recognition software. Phonetic and/or grammatical errors may exist. ___ I have re-examined the patient. There are no clinical changes since date of exam. ___ See progress notes for changes. ___ Dictated on admission Date: Time: Signature:
--- NOTE | 2020-01-13 08:18 | EKG12_ITS ---
Test Reason : PRE OP Blood Pressure : / mmHG Vent. Rate : 099 BPM Atrial Rate : 099 BPM P-R Int : 128 ms QRS Dur : 072 ms QT Int : 330 ms P-R-T Axes : 065 053 026 degrees QTc Int : 423 ms Normal sinus rhythm Normal ECG Confirmed by PRINCE ROSSI, GUICHO ([id number]), editor managing director RENETTA CHENG ([id number]) on 01/14/2020 9:24:32 AM Referred By: Irwin Long Confirmed By:GUICHO MORRISON MD
[2020-01-13 09:24] LABS: Absolute Lymphocyte Count 1.78 X10^3/uL (0.83-4.51); Absolute Neutrophil Count 5.8 X10^3/uL (2.0-7.7); Basophil# 0.07 X10^3/uL; Basophil% 0.8 % (0-1); Eosinophil# 0.27 X10^3/uL; Hemoglobin 11.3 g/dL (12.0-15.0); Lymphocyte # 1.78 X10^3/ul (4.0); Lymphocyte % 19.6 % (19-41); Mean Corp Hgb Conc 30.5 g/dL (32-36); Mean Corpuscular Volume 91.8 fL (81-99); Mean Platelet Vol. 9.7 fl (6.2-12.0); Monocyte# 1.16 X10^3/uL; Monocyte% 12.8 % (0-10); NRBC Flagged by Analyzer 0 % (0-5); Neutrophil # 5.77 X10^3/uL (2.7-7.7); Neutrophil % 63.6 % (47-70); Platelet Count 330 K/mm3 (150-450); RBC Distribution Width CV 13.4 % (11.6-14.6); RBC Distribution Width SD 45.8 fl (35.1-43.9); Red Blood Count 4.03 M/mm3 (4.2-5.4); White Blood Count 9.1 K/mm3 (4.4-11.0)
[2020-01-13 10:08] LABS: Anion Gap 9 (5-15); BUN 9 mg/dL (7-18); BUN/Creat Ratio 10.9 RATIO (10-20); Chloride 112 mmol/L (98-107); Creatinine, Serum 0.82 mg/dL (0.55-1.02); EST Glomerular Filtration Rate 80 mL/min (>60); Est Glom Filt Rate - Afr Amer 97 mL/min (>60); Glucose 100 mg/dL (74-106); Potassium 3.6 mmol/L (3.5-5.1); Sodium Level 139 mmol/L (136-145)
[2020-01-13 10:17] LABS: Magnesium 2.5 mg/dL (1.6-2.6)
[2020-01-21] VITALS (14 sets, daily range): BP systolic 112–147; BP diastolic 81–99; PULSE 73–102; RESP 14–16; TEMP 36.3–37.6; O2SAT 96–100; BMI 21.1
[2020-01-21] MEDS: Lactated Ringers 1,000 ML 100 ML IV (07:20)
[2020-01-21] MEDS: Scopolamine 1mg/72hr Patch 1 PATCH TRANSDERM. (09:27)
[2020-01-21] MEDS: Celecoxib 200 MG Capsule 400 MG PO (09:29)
[2020-01-21] MEDS: Gabapentin 600 MG Tablet PO (09:29)
[2020-01-21] MEDS: Acetaminophen 500 MG Tablet 1000 MG PO ×2 (09:29→22:03)
[2020-01-21] MEDS: Magnesium Sulfate 4gm/100mL 4 GM/100 ML IV.SOLN. IV (09:30)
[2020-01-21 10:01] LABS: Bedside Glucose 126 mg/dL (70-110)
[2020-01-21] MEDS: Cefazolin 2 GM in 0.9% Normal Saline 100 ML IV (13:48)
[2020-01-21] MEDS: dexAMETHasone 10 MG/ML Vial IV (14:30)
--- NOTE | 2020-01-21 14:47 | PCM.OPRPT ---
Report of Operation Date of Procedure: 01/21/20 Pre-Operative Diagnosis: Right knee secondary osteoarthritis, rheumatoid arthritis Post-Operative Diagnosis: Right knee secondary osteoarthritis, rheumatoid arthritis Surgery/Procedure Performed:: Right knee minimally invasive robotic assisted total knee replacement Description of Surgical Findings:: Stable knee with good patella tracking bomb squad commander: Eligio Schwarz Type of Anesthesia:: Spinal Anesthesiologist: Jacobo Sawyer Special Medications: 2 g Ancef, 1 g TXA at incision, 1 g TXA closure, 10 mg Decadron, joint cocktail (5 mg Duramorph, 30 mL of 0.5% Ropivicaine, 1000 units of epinephrine, 30 mg of Toradol) Estimated Blood Loss (mL): 25 Fluids Replaced: 1400 mL crystalloid Description of Procedure: Implants used: 1. [place] size 2 triathlon cruciate retaining distal femoral press-fit component 2. [place] size 2 press-fit tritanium tibial baseplate 3. [place] X3 10 mm CS polyethylene 4. [place] X3 29 mm press-fit asymmetric patella Brief history operative indications: 45-year-old f with history of right knee rheumatoid arthritis with secondary osteoarthritis with radiographic findings with loss of joint space, osteophyte formation and subchondral sclerosis. Failed conservative measures as mentioned in the H&P. Discussion of total knee arthroplasty as well as risk and benefits were discussed the patient including but not limited to blood loss, DVTs, PEs, neurovascular damage, general risk of anesthesia including loss of life, and stiffness or instability were discussed with patient. Patient demonstrated understanding and was able to sign informed consent. Procedure: On the date of procedure patient's right lower extremity was marked in the preoperative area. The patient was then taken back to the operating room where the patient was placed on the table in the supine position. All bony prominences were identified a well-padded. Anesthesia assumed control of the C-spine and airway and remained controlled throughout the remainder of the procedure. A tourniquet was placed on the right upper thigh and the leg was prepped in a sterile fashion. The surgeon then scrubbed at this time .Upon reentering the room right lower extremity was draped in a standard orthopedic fashion. A timeout was then called and everyone agreed upon the side, the site, the procedure to be performed, patient's identity and antibiotics given. Esmarch bandage was used to exsanguinate the extremity and the tourniquet was placed up to 250 mmHg with the knee in flexion. A midline skin incision was made and sharp dissection was taken down through skin subcutaneous tissue and fat. The standard medial parapatellar incision was made and the patella was subluxed laterally. An Appropriate deep MCL release was done and the fat pad was resected. Our attention was then directed to the patella. The patella was everted and a flat resection was made. The knee was then flexed up in 2 femoral pins were placed inside the incision and 2 tibial pins were placed outside the incision in the medial tibia bicortically. Once this was completed the 2 checkpoints in the femur and tibia were placed. Knee was then flexed up and the bony landmarks were registered. Once this was completed knee was taken through range of motion and manually stressed allowing us to a plan for an appropriate tibial cut. The robotic arm was brought into the field sterilely and checkpoint and saw were registered. Based on the patient's deformity the tibial cut was made in neutral. At this time the tensioner was then placed in the joint and ligament tension was checked at 90 degrees and full extension. Based on the patient's ligamentous tension appropriate adjustments were made to the operative plan and ligament releases were done. Once we were happy with our operative plan with balanced flexion and extension gaps our attention was directed to the femur. The robot was brought into the field sterilely and registered. Posterior condylar cuts, anterior chamfer cuts and anterior cuts were appropriately made for a size 2 femur. When these were completed the saws were switched out in the distal femoral and posterior chamfer cuts were made. Protecting the soft tissue throughout this time. A size 2 tibial base plate was selected. the knee was flexed to 90 degrees and the soft tissues and posterior osteophytes were removed from the joint. 40 cc of the periarticular injection was injected into the posterior medial corner of the joint. The appropriate trials were then placed on the femur and tibia. A trial polyethylene was trialed to ensure proper balancing and stability of the knee. The appropriate tibial internal rotation was then marked with a bovie. Our attention was then directed to the patella. The lug holes were drilled and the patella trial was placed. Patellar tracking was checked and deemed appropriate. Once we were happy lug holes were drilled for the femur and trial components were removed. the tibia was subluxed and pinned into place and the keel was punched and drilled appropriately. Final components were verified and opened, and cement was mixed in a vacuum. Just [employer] cement was used. The wound was copiously irrigated with normal saline. When the cement was ready the components were impacted into place starting with the tibia, femur and finally clamping the patella. The trial poly component was placed and the knee was placed in full extension. All excess cement was removed in the process. Once the cement had cured the tracking, alignment and balance were verified and a size 10 mm CS polyethylene component was placed. Once the final components were placed an Irrisept lavage was performed and the wound was copiously irrigated with normal saline solution and the periarticular injection was given. The wound was closed in a layer hernandez fashion using #1 vicryl interrupted sutures for the arthrotomy, 2-0 interrupted Vicryl suture for the subcuticular layer and elvis for final skin closure. A sterile compressive dressing was then placed. The patient was then awakened from anesthesia, transferred to the r[place]aceton and transferred to the PACU for recovery. Post op plan DVT ppx: ASA 81mg BID, thigh high compression stockings Follow up: in office in 2 weeks for wound check PT: to start POD #0 at hospital, outpatient PT should be arranged. My physician junior administrative assistant was a vital part of this case. He was important in appropriate retraction during the case, and protection of soft tissues during bony cuts. His intimate knowledge of the case and my steps aided in safe and expedient completion of the procedure as well as appropriate position of the leg during the case. He was also vital in assisting with closure under my direct supervision. Due to the complexity of this case robotic arm was used to assist in the surgery to improve accuracy and clinical outcomes. - Complications No intraoperative complications - Admit VTE Documentation VTE Present on Admission: No VTE Mechan Device Prophylaxis: SCD's, Thigh High MESERET Hose VTE Pharm Prophylaxis ordered?: Yes
[2020-01-21] MEDS: Lactated Ringers 1,000 ML 999 ML IV (15:50)
--- NOTE | 2020-01-21 16:05 | RAD_ITS ---
STUDY: X-RAY - RIGHT KNEE REASON FOR EXAM: Female, 45 years old. post op right knee TECHNIQUE: 2 view(s) of the knee. COMPARISON: None. FINDINGS: Normal visualized distal femur. Normal visualized proximal tibia and fibula. Normal proximal tibiofibular articulation. Status post recent total knee arthroplasty with subcutaneous emphysema and skin elvis.. The soft tissue structures are unremarkable. RAD/Knee 1 or 2 Views IMPRESSION: Status post recent total knee arthroplasty. Electronically Signed: Ralf Barboza MD at 16:23 EDT Tel , Service support ,
[2020-01-21] MEDS: Lactated Ringers 1,000 ML 125 ML IV (16:47)
[2020-01-21] MEDS: Ensure Surgery 237 ML LIQUID PO (18:09)
[2020-01-21] MEDS: Aspirin 81 MG TAB.CHEW PO (18:09)
[2020-01-21] MEDS: Cefazolin 1 GM/50 ML BAG IV (18:13)
--- NOTE | 2020-01-21 19:42 | CON.PCM_ITS ---
Problem List (1) Status post right knee replacement Status: Acute (2) Rheumatoid arthritis Status: Chronic (3) Hypertension Status: Chronic (4) Depression Status: Chronic Reason for Consult Date of Consultation: 01/21/20 Reason for Consultation: Postoperative medical management. History of Present Illness: The patient is a 45 year old F with past medical history as mentioned above admitted today after she underwent elective right knee minimally invasive robotic assisted total knee replacement for right knee osteoarthritis/rheumatoid arthritis and I was asked to see the patient for consultation for postoperative medical management. Currently, patient stated that her knee pain is manageable, 2-3 out of 10 in severity, aggravated by bending her right knee, no other associated symptoms. She denied any chest pain or shortness of breath. She denied cough or sputum production. She denied abdominal pain, nausea or vomiting. She had history of rheumatoid arthritis and she has been on long-term prednisone as well as leflunomide and she has been stable. She had a history of hypertension which has been under control with metoprolol and lisinopril. She will history of depression and she has been on Zoloft. At this time, her vital signs are stable, hepatic, pulse ox is 98% on room air. Preoperative routine blood work that was done on January 13, 2020 was remarkable for hemoglobin of 11.3 g/dL, otherwise normal. Preoperative EKG reviewed, revealed normal sinus rhythm, no acute ischemic changes. Currently, she is on IV cefazolin for perioperative prophylaxis, on IV morphine and OxyIR as needed for pain. Past Medical History Past Medical History (Chronic Problems): Chronic Problems Rheumatoid arthritis (Chronic) Hypertension (Chronic) Depression (Chronic) Allergies No Known Allergies Allergy (Verified 10/19/17 11:06) Home Medications: Ambulatory Orders Medication Instructions Recorded Leflunomide 20 mg PO DAILY 06/15/17 Lisinopril [Zestril] 20 mg PO DAILY 06/15/17 Metoprolol Tartrate [Lopressor 50 mg PO BID 06/15/17 (beta el)] Prednisone 5 mg PO DAILY 06/15/17 Sertraline HCl [Zoloft] 50 mg PO DAILY 06/15/17 traMADol [Ultram (G)] 50 mg PO Q6H PRN PRN 01/07/20 Surgical History: appendectomy, total hip arthroplasty, total knee arthroplasty Psychiatric History: Depression FORMULA BOTTLER History: No pertinent FORMULA BOTTLER history Lives: Spouse/ Significant Other Smoking Status: Never smoker Alcohol: None Drugs: None - *Family History Maternal History Items: No pertinent history Paternal History Items: No pertinent history Review of Systems Constitutional: Denies: Anorexia, Chills, Fever, Weakness Eyes: Denies: Blurred vision, Double vision, Drainage, Redness HEENT: Denies: Difficulty Hearing, Ear Pain, Eye Pain, Nasal bleeding, Nasal Congestion, Sore Throat Cardiovascular: Denies: Chest Pain, Chest Pressure, Edema, Heaviness, Light Headedness, Palpitations, Syncope Respiratory: Denies: Cough, Pleuritic Pain, Shortness of Breath, Sputum production, Wheezing Gastrointestinal: Denies: Abdominal Pain, Constipation, Diarrhea, Nausea, Vomiting Genitourinary: Denies: Dysuria, Frequency, Hematuria Musculoskeletal: Reports: Joint Pain. Denies: Arm Pain, Back Pain, Foot Pain Skin: Denies: Dryness, Rash Neurological: Denies: Balance problems, Double vision, Change in Speech, Focal weakness, Headaches, Incoordination Psychiatric: Reports: Depression. Denies: Anxiety Endocrine: Denies: Change in Body Habitus, Polydipsia, Polyuria - Physical Exam Vitals/I&O's: Vital Signs Temp Pulse Resp BP Pulse Ox 97.7 F L 84 14 130/86 H 98 01/21/20 17:46 01/21/20 18:00 01/21/20 17:46 01/21/20 17:46 01/21/20 17:46 Oxygen Flow Rate (L/min) 6 Oxygen Delivery Method Room Air Weight: 119 lb 4.321 oz Body Mass Index (BMI) 21.1 Intake and Output for Last 24 Hours 01/19/20 01/20/20 01/21/20 23:59 23:59 23:59 Intake Total 2659.17 / 2659.17 Balance 2659.17 / 2659.17 General: Alert, Oriented x3, Cooperative, No apparent distress HEENT: Atraumatic, PERRLA, EOMI, Normocephalic Oral: Moist Mucosa, No Gingival or Mucosal Lesions/ Ulcerations Neck: Supple, No JVD, Negative Carotid Bruits, Trachea Midline, Thyroid Normal Size and Texture Lungs: Clear to auscultation, Normal air movement, No rhonchi, No wheeze, No rales Cardiovascular: Regular rate, Regular Rhythm, Normal S1, Normal S2, PMI Normal Abdomen: Bowel Sounds Present, Soft, Non Tender, Non-Distended, No Hepato- splenomegaly Extremities: No clubbing, No cyanosis, No edema, - - Joint deformities of both hands due to rheumatoid arthritis. Skin: No rashes, No breakdown Lymphatic: No Cervical, Supraclavicular, or Inguinal Adenopathy Neurological: Cranial nerves II-XII grossly intact, Motor Exam 5/5 strength throughout Psych/Mental Status: Normal Affect, Appropriate, Alert and oriented to time, place, person, mood and affect Laboratory Results 01/21/20 09:16: POC Glucose 126 H Clinical Impression(s) from Imaging Studies Knee X-Ray 01/21/20 16:05 IMPRESSION: Status post recent total knee arthroplasty. Electronically Signed: Ralf Barboza MD at 16:23 EDT Tel , Service support , Current Medications Acetaminophen (Acetaminophen 500 Mg Tablet) 1,000 mg PO Q8 [facility] Last Admin: 01/21/20 17:25 Dose: Not Given Documented by: Aspirin (Aspirin 81 Mg Tab.Chew) 81 mg PO BIDCM [facility] Last Admin: 01/21/20 18:09 Dose: 81 mg Documented by: Enteral Nutritional Formula (Ensure Surgery 237 Ml Liquid) 237 ml PO TIDCM [facility] Last Admin: 01/21/20 18:09 Dose: 237 ml Documented by: Famotidine (Famotidine 20 Mg Tablet) 20 mg PO DAILY [facility] Last Admin: 01/21/20 17:25 Dose: Not Given Documented by: Lactated Ringer's () 1,000 mls @ 100 mls/hr IV .Q10H [facility] Last Infusion: 01/21/20 15:49 Dose: Infused Documented by: Cefazolin Sodium () 1 gm in 50 mls @ 150 mls/hr IV Q8H [facility] Stop: 01/22/20 02:49 Last Infusion: 01/21/20 18:33 Dose: Infused Documented by: Insulin Human Lispro (Insulin Lispro 100 Unit/Ml Insuln.Pen) 1 - 6 unit SC Q4H PRN PRN; Protocol PRN Reason: BG>/= 180, SEE PROTOCOL Ketorolac Tromethamine (Ketorolac 15 Mg/Ml Vial) 15 mg IV Q6H PRN PRN PRN Reason: Pain Score 1-5 Stop: 01/23/20 07:18 Leflunomide (Leflunomide 10 Mg Tablet) 20 mg PO DAILY [facility] Lisinopril (Lisinopril 20 Mg Tablet) 20 mg PO DAILY [facility] Metoprolol Tartrate (Metoprolol Tartrate 50 Mg Tablet) 50 mg PO BID [facility] Morphine Sulfate (Morphine 2 Mg/Ml Syringe) 2 - 4 mg IV Q2H PRN PRN PRN Reason: Pain Score 6-10 Morphine Sulfate (Morphine 4 Mg/Ml Syringe) 2 - 4 mg IV Q2H PRN PRN PRN Reason: Pain Score 6-10 Ondansetron HCl (Ondansetron 4 Mg/2 Ml Vial) 4 mg IV Q8H PRN PRN PRN Reason: NAUSEA Oxycodone HCl (Oxycodone 5 Mg Tablet) 5 - 10 mg PO Q4H PRN PRN PRN Reason: Pain Score 4-10 Prednisone (Prednisone 5 Mg Tablet) 5 mg PO DAILY@0800 [facility] Promethazine HCl (Promethazine 25 Mg/Ml Syringe) 12.5 mg IM Q6H PRN PRN; Protocol PRN Reason: NAUSEA/VOMITING Senna/Docusate Sodium (Senna/Docusate Sodium 1 Tablet) 2 tablet PO BID [facility] Last Admin: 01/21/20 17:25 Dose: Not Given Documented by: Sertraline HCl (Sertraline 50 Mg Tablet) 50 mg PO DAILY [facility] Sodium Chloride (0.9% Saline Lock 10 Ml Syringe) 10 - 40 ml IV UD PRN PRN Reason: SALINE FLUSH Assessment/Plan All Active Problems Status post right knee replacement (Acute) This is a 45 years old female patient admitted to the hospital after she underwent elective right total knee replacement for right knee osteoarthritis and I am seeing this patient for postoperative medical management. #1 status post right knee minimally invasive robotic assisted total knee replacement: This was done for right numerous arthritis/rheumatoid arthritis, postoperative day 0. Currently, patient complains of joint pain but it is manageable, pain medication is effective. She is on IV cefazolin for perioperative prophylaxis, on IV morphine and OxyIR as needed for pain. Preoperative routine blood work and EKG reviewed as above, was unremarkable. CBC and BMP ordered for tomorrow. Orthopedic surgery on the case and managing. #2 hypertension: Blood pressure stable, continue lisinopril and metoprolol. #3 rheumatoid arthritis: With chronic bilateral hand deformities, stable and denies any joint pain. Blood pressure is stable. Continue prednisone and lop eramide. #4 depression: Continue Zoloft. #5 DVT prophylaxis: Aspirin twice daily. This note was generated with [employer] dictation software. It may contain incorrect words, spelling, and punctuation that were not noted in checking the note before signing. Inpatient E&M: 95553 Init Hosp L2
[2020-01-21] MEDS: Ketorolac 15 MG/ML Vial IV (22:02)
[2020-01-21] MEDS: Senna/Docusate Sodium 1 Tablet 2 TABLET PO (22:03)
[2020-01-21] MEDS: Metoprolol Tartrate 50 MG Tablet PO (22:03)
[2020-01-22] MEDS: oxyCODONE 5 MG Tablet PO ×4 (00:46→13:32)
[2020-01-22] MEDS: Cefazolin 1 GM/50 ML BAG IV (02:10)
[2020-01-22 02:13] VITALS: BP 120/79; PULSE 58; RESP 14; TEMP 37; O2SAT 100
[2020-01-22] MEDS: Acetaminophen 500 MG Tablet 1000 MG PO ×2 (06:30→13:27)
[2020-01-22 07:14] LABS: Hematocrit 29.2 % (37-47); Hemoglobin 8.9 g/dL (12.0-15.0); Mean Corp Hgb Conc 30.5 g/dL (32-36); Mean Corpuscular Hgb 27.7 pg (27.0-32.0); Mean Platelet Vol. 9.5 fl (6.2-12.0); Platelet Count 348 K/mm3 (150-450); RBC Distribution Width CV 14.5 % (11.6-14.6); RBC Distribution Width SD 48.4 fl (35.1-43.9); Red Blood Count 3.21 M/mm3 (4.2-5.4); White Blood Count 13.7 K/mm3 (4.4-11.0)
[2020-01-22 07:39] LABS: Anion Gap 7 (5-15); BUN 10 mg/dL (7-18); Calcium,Total 8.4 mg/dL (8.5-10.1); Chloride 114 mmol/L (98-107); Creatinine, Serum 0.59 mg/dL (0.55-1.02); EST Glomerular Filtration Rate 118 mL/min (>60); Est Glom Filt Rate - Afr Amer 143 mL/min (>60); Estimated Creatinine Clearance 100.66 ml/min; Glucose 87 mg/dL (74-106); Potassium 3.9 mmol/L (3.5-5.1); Sodium Level 142 mmol/L (136-145)
--- NOTE | 2020-01-22 07:48 | PCM.PN.HOSP ---
Patient Problems: Active and Suspected Problems Status post right knee replacement (Acute) Subjective: Patient seen and examined. She is POD 1 for elective right knee total knee replacement for osteoarthritis and rheumatoid arthritis. Hospitalist team on board for medical management. She has no complaints today. Pain is well managed. Review of systems is otherwise negative. She has remained hemodynamically stable. Vitals/I&O's: Vital Signs Temp Pulse Resp BP Pulse Ox 98.6 F 58 L 14 120/79 100 01/22/20 02:13 01/22/20 02:13 01/22/20 02:13 01/22/20 02:13 01/22/20 02:13 Oxygen Flow Rate (L/min) 6 Oxygen Delivery Method Room Air Weight: 119 lb 4.321 oz Body Mass Index (BMI) 21.1 Intake and Output for Last 24 Hours 01/20/20 01/21/20 01/22/20 23:59 23:59 23:59 Intake Total 2659.17 / 2659.17 1370.83 / 1370.83 Output Total 600 / 600 Balance 2659.17 / 2659.17 770.83 / 770.83 General: Alert, Oriented x3, Cooperative, No apparent distress HEENT: Atraumatic, PERRLA, EOMI, Normocephalic Oral: Moist Mucosa, No Gingival or Mucosal Lesions/ Ulcerations Neck: Supple, No JVD, Negative Carotid Bruits, Trachea Midline, Thyroid Normal Size and Texture Lungs: Clear to auscultation, Normal air movement, No rhonchi, No wheeze, No rales Cardiovascular: Regular rate, Regular Rhythm, Normal S1, Normal S2, PMI Normal Abdomen: Bowel Sounds Present, Soft, Non Tender, Non-Distended, No Hepato-splenomegaly Extremities: No clubbing, No cyanosis, No edema, - - Joint deformities of both hands due to rheumatoid arthritis. Skin: No rashes, No breakdown Lymphatic: No Cervical, Supraclavicular, or Inguinal Adenopathy Neurological: Cranial nerves II-XII grossly intact, Motor Exam 5/5 strength throughout Psych/Mental Status: Normal Affect, Appropriate, Alert and oriented to time, place, person, mood and affect Laboratory Results 01/21/20 09:16: POC Glucose 126 H 01/22/20 06:45: WBC 13.7 H, RBC 3.21 L, Hgb 8.9 L, Hct 29.2 L, MCV 91.0, MCH 27.7, MCHC 30.5 L, RDW Std Deviation 48.4 H, RDW Coeff of Josh 14.5, Plt Count 348, MPV 9.5 01/22/20 06:45: Sodium 142, Potassium 3.9, Chloride 114 H, Carbon Dioxide 21.0, Anion Gap 7, BUN 10, Creatinine 0.59, Estim Creat Clear Calc 100.66, Est GFR (MDRD) Af Amer 143, Est GFR (MDRD) Non-Af 118, BUN/Creatinine Ratio 17.0, Glucose 87, Calcium 8.4 L Diagnostic Data Knee X-Ray 01/21/20 16:05 IMPRESSION: Status post recent total knee arthroplasty. Electronically Signed: Ralf Barboza MD at 16:23 EDT Tel , Service support , Current Medications Acetaminophen (Acetaminophen 500 Mg Tablet) 1,000 mg PO Q8 [facility] Last Admin: 01/22/20 06:30 Dose: 1,000 mg Documented by: Aspirin (Aspirin 81 Mg Tab.Chew) 81 mg PO BIDCM [facility] Last Admin: 01/21/20 18:09 Dose: 81 mg Documented by: Enteral Nutritional Formula (Ensure Surgery 237 Ml Liquid) 237 ml PO TIDCM [facility] Last Admin: 01/21/20 18:09 Dose: 237 ml Documented by: Famotidine (Famotidine 20 Mg Tablet) 20 mg PO DAILY [facility] Last Admin: 01/21/20 17:25 Dose: Not Given Documented by: Insulin Human Lispro (Insulin Lispro 100 Unit/Ml Insuln.Pen) 1 - 6 unit SC Q4H PRN PRN; Protocol PRN Reason: BG>/= 180, SEE PROTOCOL Ketorolac Tromethamine (Ketorolac 15 Mg/Ml Vial) 15 mg IV Q6H PRN PRN PRN Reason: Pain Score 1-5 Stop: 01/23/20 07:18 Last Admin: 01/21/20 22:02 Dose: 15 mg Documented by: Leflunomide (Leflunomide 10 Mg Tablet) 20 mg PO DAILY [facility] Lisinopril (Lisinopril 20 Mg Tablet) 20 mg PO DAILY [facility] Metoprolol Tartrate (Metoprolol Tartrate 50 Mg Tablet) 50 mg PO BID [facility] Last Admin: 01/21/20 22:03 Dose: 50 mg Documented by: Morphine Sulfate (Morphine 2 Mg/Ml Syringe) 2 - 4 mg IV Q2H PRN PRN PRN Reason: Pain Score 6-10 Morphine Sulfate (Morphine 4 Mg/Ml Syringe) 2 - 4 mg IV Q2H PRN PRN PRN Reason: Pain Score 6-10 Ondansetron HCl (Ondansetron 4 Mg/2 Ml Vial) 4 mg IV Q8H PRN PRN PRN Reason: NAUSEA Oxycodone HCl (Oxycodone 5 Mg Tablet) 5 - 10 mg PO Q4H PRN PRN PRN Reason: Pain Score 4-10 Last Admin: 01/22/20 05:02 Dose: 10 mg Documented by: Prednisone (Prednisone 5 Mg Tablet) 5 mg PO DAILY@0800 [facility] Promethazine HCl (Promethazine 25 Mg/Ml Syringe) 12.5 mg IM Q6H PRN PRN; Protocol PRN Reason: NAUSEA/VOMITING Senna/Docusate Sodium (Senna/Docusate Sodium 1 Tablet) 2 tablet PO BID [facility] Last Admin: 01/21/20 22:03 Dose: 2 tablet Documented by: Sertraline HCl (Sertraline 50 Mg Tablet) 50 mg PO DAILY [facility] Sodium Chloride (0.9% Saline Lock 10 Ml Syringe) 10 - 40 ml IV UD PRN PRN Reason: SALINE FLUSH Medical Necessity - Tobacco Use Smoking Status: Never smoker Assessment/Plan All Active Problems Status post right knee replacement (Acute) # RIght knee arthritis s/p right knee replacement today is pOD 1 on IV morphine and oxy IR prn for pain. management as per primary orthopedic team #Hypertension: on lisinopril and metoprolol # Depression; on zoloft DVT prophylaxis: on aspirin bid as per orthopedic service Inpatient E&M: 05601 [facility] H[facility] L[facility]
[2020-01-22 07:55] VITALS: BP 134/87; PULSE 98; RESP 16; TEMP 37; O2SAT 100
[2020-01-22 07:56] VITALS: PULSE 98
[2020-01-22] MEDS: Metoprolol Tartrate 50 MG Tablet PO (07:56)
[2020-01-22] MEDS: Aspirin 81 MG TAB.CHEW PO (07:56)
[2020-01-22] MEDS: Lisinopril 20 MG Tablet PO (07:57)
[2020-01-22] MEDS: Famotidine 20 MG Tablet PO (07:57)
[2020-01-22] MEDS: Leflunomide 10 MG TABLET 20 MG PO (07:57)
[2020-01-22] MEDS: Senna/Docusate Sodium 1 Tablet 2 TABLET PO (07:57)
[2020-01-22] MEDS: predniSONE 5 MG Tablet PO (07:58)
[2020-01-22] MEDS: Sertraline 50 MG Tablet PO (07:58)
[2020-01-22] MEDS: Ensure Surgery 237 ML LIQUID PO ×2 (08:01→11:47)
[2020-01-22] MEDS: 0.9% Saline Lock 10 ML Syringe IV (08:01)
[2020-01-22] MEDS: Ketorolac 15 MG/ML Vial IV (08:01)
--- NOTE | 2020-01-22 11:25 | PCM.PN.ORT ---
Patient Problems: Active and Suspected Problems Status post right knee replacement (Acute) Subjective: The patient was sitting in bedside chair upon examination. Patient denies any chest pain, shortness of breath, dizziness, lightheadedness, nausea or vomiting, or calf pain. Pain is controlled on medications. No adverse overnight events. Patient states she does have soreness in the right knee when she is up moving. She states she feels better when she is up moving versus sitting down for extended periods of time. She tolerated therapy very well. Her pain is been controlled. She does wish to go home today. Objective: Vital signs stable and afebrile. Patient is able to plantarflex and dorsiflex actively. Sensation is intact to light touch to saphenous, sural, superficial and deep peroneal, and tibial distribution. Dressing is clean dry and intact. Negative Homans bilaterally, negative signs and symptoms of DVT. - Physical Exam Vitals/I&O's: Vital Signs Temp Pulse Resp BP Pulse Ox 98.6 F 98 16 134/87 H 100 01/22/20 07:55 01/22/20 07:56 01/22/20 07:55 01/22/20 07:55 01/22/20 07:55 Oxygen Flow Rate (L/min) 6 Oxygen Delivery Method Room Air Weight: 54.1 kg Body Mass Index (BMI) 21.1 Intake and Output for Last 24 Hours 01/20/20 01/21/20 01/22/20 23:59 23:59 23:59 Intake Total 2659.17 / 2659.17 1370.83 / 1370.83 Output Total 600 / 600 Balance 2659.17 / 2659.17 770.83 / 770.83 General: Alert, Oriented x3, Cooperative, No apparent distress Laboratory Results 01/22/20 06:45: WBC 13.7 H, RBC 3.21 L, Hgb 8.9 L, Hct 29.2 L, MCV 91.0, MCH 27.7, MCHC 30.5 L, RDW Std Deviation 48.4 H, RDW Coeff of Josh 14.5, Plt Count 348, MPV 9.5 01/22/20 06:45: Sodium 142, Potassium 3.9, Chloride 114 H, Carbon Dioxide 21.0, Anion Gap 7, BUN 10, Creatinine 0.59, Estim Creat Clear Calc 100.66, Est GFR (MDRD) Af Amer 143, Est GFR (MDRD) Non-Af 118, BUN/Creatinine Ratio 17.0, Glucose 87, Calcium 8.4 L Current Medications Acetaminophen (Acetaminophen 500 Mg Tablet) 1,000 mg PO Q8 [facility] Last Admin: 01/22/20 06:30 Dose: 1,000 mg Documented by: Aspirin (Aspirin 81 Mg Tab.Chew) 81 mg PO BIDCM [facility] Last Admin: 01/22/20 07:56 Dose: 81 mg Documented by: Enteral Nutritional Formula (Ensure Surgery 237 Ml Liquid) 237 ml PO TIDCM [facility] Last Admin: 01/22/20 08:01 Dose: 237 ml Documented by: Famotidine (Famotidine 20 Mg Tablet) 20 mg PO DAILY [facility] Last Admin: 01/22/20 07:57 Dose: 20 mg Documented by: Insulin Human Lispro (Insulin Lispro 100 Unit/Ml Insuln.Pen) 1 - 6 unit SC Q4H PRN PRN; Protocol PRN Reason: BG>/= 180, SEE PROTOCOL Ketorolac Tromethamine (Ketorolac 15 Mg/Ml Vial) 15 mg IV Q6H PRN PRN PRN Reason: Pain Score 1-5 Stop: 01/23/20 07:18 Last Admin: 01/22/20 08:01 Dose: 15 mg Documented by: Leflunomide (Leflunomide 10 Mg Tablet) 20 mg PO DAILY [facility] Last Admin: 01/22/20 07:57 Dose: 20 mg Documented by: Lisinopril (Lisinopril 20 Mg Tablet) 20 mg PO DAILY [facility] Last Admin: 01/22/20 07:57 Dose: 20 mg Documented by: Metoprolol Tartrate (Metoprolol Tartrate 50 Mg Tablet) 50 mg PO BID [facility] Last Admin: 01/22/20 07:56 Dose: 50 mg Documented by: Morphine Sulfate (Morphine 2 Mg/Ml Syringe) 2 - 4 mg IV Q2H PRN PRN PRN Reason: Pain Score 6-10 Morphine Sulfate (Morphine 4 Mg/Ml Syringe) 2 - 4 mg IV Q2H PRN PRN PRN Reason: Pain Score 6-10 Ondansetron HCl (Ondansetron 4 Mg/2 Ml Vial) 4 mg IV Q8H PRN PRN PRN Reason: NAUSEA Oxycodone HCl (Oxycodone 5 Mg Tablet) 5 - 10 mg PO Q4H PRN PRN PRN Reason: Pain Score 4-10 Last Admin: 01/22/20 10:02 Dose: 10 mg Documented by: Prednisone (Prednisone 5 Mg Tablet) 5 mg PO DAILY@0800 [facility] Last Admin: 01/22/20 07:58 Dose: 5 mg Documented by: Promethazine HCl (Promethazine 25 Mg/Ml Syringe) 12.5 mg IM Q6H PRN PRN; Protocol PRN Reason: NAUSEA/VOMITING Senna/Docusate Sodium (Senna/Docusate Sodium 1 Tablet) 2 tablet PO BID [facility] Last Admin: 01/22/20 07:57 Dose: 2 tablet Documented by: Sertraline HCl (Sertraline 50 Mg Tablet) 50 mg PO DAILY [facility] Last Admin: 01/22/20 07:58 Dose: 50 mg Documented by: Sodium Chloride (0.9% Saline Lock 10 Ml Syringe) 10 - 40 ml IV UD PRN PRN Reason: SALINE FLUSH Last Admin: 01/22/20 08:01 Dose: 10 ml Documented by: Medical Necessity - Tobacco Use Smoking Status: Never smoker Assessment/Plan All Active Problems Status post right knee replacement (Acute) 1. S/P right total knee arthroplasty POD #1 2. Continue Pain Medications: Tylenol and OxyIR 3. DVT Prophylaxis: Take 81 mg aspirin twice daily for 4 weeks postoperatively for DVT prophylaxis 4. PT/OT: Weightbearing as tolerated 5. H & H: 8.9/29.2, asymptomatic. Postoperative anemia secondary to acute blood loss from surgery without complications and surgery. Patient currently asymptomatic and vital signs are stable 6. Reactive leukocytosis: Currently 13.7, afebrile. Patient did receive Decadron intraoperatively 7. Encouraged Incentive Spirometry 8. Continue postoperative medical management per medicine 9.. Disposition: Patient overall doing very well today. Plan will be for discharge home today after afternoon physical therapy. Prescriptions will be sent to [facility] in [facility]. Patient will follow-up per postop instructions. She has outpatient physical therapy established. I have reviewed the [place] Automated Rx Reporting System (OARRS) report for this patient for refill pattern and other prescriber involvement as part of the appropriate surveillance for the provision of acute and chronic controlled medications. The report was requested and reviewed on the date of this entry and was considered in the prescribing process.
--- NOTE | 2020-01-22 11:31 | DCINST_ITS ---
Discharge Diet: No Restrictions Discharge Activity: May Not Drive May shower in (days): 1 - Dressing must be intact the skin. Turn dressing away from water Ice area for (Minutes): 20 - Every 1-2 hours while awake Weight Bearing Status: Weight bearing as tolerated Elevate: Operative Extremity Additional Activity Instructions:: Wear elastic stockings for 2 weeks after your surgery. Call your doctor if your incision/area has: Continuous Slow Oozing, Sudden Increased Bleeding, Increased Pain/ Swelling, Increased Redness, Foul Smelling Discharge Call your doctor if you observe: Fever of 101 or Higher, Coldness, Increased Pain, Numbness or Tingling, Change in Color, Calf discomfort, Uncontrolled pain Remove Dressing in (days):: 4 - Okay to remove dressing on January 26, 2020 Additional Instructions: Follow orthopedic postop instructions Allergies/Adverse Reactions: Allergies No Known Allergies Allergy (Verified 10/19/17 11:06) Medications to take at Discharge Leflunomide 20 mg PO DAILY 06/15/17 Lisinopril [Zestril] 20 mg PO DAILY 06/15/17 Metoprolol Tartrate [Lopressor (beta el)] 50 mg PO BID 06/15/17 Prednisone 5 mg PO DAILY 06/15/17 Sertraline HCl [Zoloft] 50 mg PO DAILY 06/15/17 Acetaminophen [Tylenol] 1,000 mg PO Q8 #100 tab 01/22/20 Aspirin [Aspirin, Baby] 81 mg PO BIDCM #60 tab 01/22/20 Oxycodone [Oxyir] 5 - 10 mg PO Q4H PRN PRN 5 Days #60 tablet 01/22/20 The following prescriptions were given: Aspirin [Aspirin, Baby] 81 mg PO BIDCM #60 tab Transmission Status: Pending to [facility] Oxycodone [Oxyir] 5 - 10 mg PO Q4H PRN PRN 5 Days #60 tablet PRN Reason: Pain Score 4-10 Transmission Status: Sent to [facility] Acetaminophen [Tylenol] 1,000 mg PO Q8 #100 tab Transmission Status: Pending to [facility] Orders to be completed after discharge: 12 Lead EKG [[facility]] Time Frame: 01/13/20, Location: None Selected Primary Care Physician: Palomo Brown MD [Primary Care Provider] - Test Results: Test results from this visit will be discussed in further detail at your follow- up appointment, if applicable. Please Follow Up With: [facility] When: 01/23/20 @ 10:00 am Please Follow Up With: Dari King NP, NP-C When: 02/04/20 @ 9:45 am
--- NOTE | 2020-01-22 11:45 | CASEMGMT ---
RN BOB Face to Face with patient for initial transition planning/care coordination assessment. RN CM introduced self and role at [facility]. Patient sitting in chair, alert and oriented, at bedside. Patient willing to participate in assessment and is able to answer all questions appropriately. Care providers, pharmacy, and demographics verified. Patient wishes to discharge home and has home therapy setup with [facility]. Patient states she has no further needs or concerns at this time. CM to follow for discharge planning needs that may arise. PCP: Kevin Specialists: Ivan Long Pref[facility] Insurance: Self pay Prescription Benefit: none Living Will/HPOA: none LNOK: Living Arrangements: patient lives with in a 2 story home with bed and bath on the main floor. Patient was independent at home. Transportation: DME/HHC: Patient states she has cane, walker, and grab bars at home. Patient to begin home therapy with [facility] starting tomorrow. Disposition Plan: Patient to discharge home with family support, home therapy, and follow-up plans in place. Cristina STARKEY, RN, CM
[2020-01-22 13:30] VITALS: BP 144/96; PULSE 84; RESP 18; TEMP 36.7; O2SAT 99
== END 2020-01-22 14:06 | disposition home or self-care (01) ==
LOC: SDC 09:11 → MS3 09:11
PROVIDERS: Anesthesiology; Admitting Provider Specialist; PCP Family Medicine; Referring Provider Specialist; Visit Provider Student in an Organized Health Care Education/Training Program
PROC: 0SRC0JZ Replacement of Right Knee Joint with Synthetic Substitute, Open Approach (ICD-10-PCS; CPT 27447; principal; 2020-01-21 10:00)
DX: M17.5 Other unilateral secondary osteoarthritis of knee (principal); M06.9 Rheumatoid arthritis, unspecified; I10 Essential (primary) hypertension; F32.9 Major depressive disorder, single episode, unspecified; Z79.899 Other long term (current) drug therapy; Z79.52 Long term (current) use of systemic steroids
CPT/HCPCS: 01400; 27447; 64447; S2900; 36415; 73560; 80048; 82962; 83735; 85025; 85027; 87081; 87635; 93005; 96361; 96365; 96366; 96367; 96375; 96376; 97110; 97161; 97166; 97530; 97535; 99218; 99251; C1776; C9803; J7120; A4216; G0378; G0463; J2405; U0003

== ENCOUNTER → 2020-03-18 16:32 | Outpatient (CLI) | payer SELFPAY ==
[2020-01-21 17:46] VITALS: BMI 21.1
--- NOTE | 2020-03-18 16:36 | CT_ITS ---
CT of the left lower extremity INDICATION: Osteoarthritis [facility] protocol TECHNIQUE: CT of the left lower extremity was performed scanning in the axial plane without contrast from the hip to the knee followed by sagittal and coronal reconstructions radiographic technique was optimized to limit patient radiation dose. DLP was 1100.2 FINDINGS: Left hip prosthesis is noted which appears to be stable in alignment and position. The femoral shaft is intact. There is narrowing of the medial compartment of the femorotibial joint space with mild varus angulation. There is also narrowing of the lateral compartment of the patellofemoral joint with mild lateral patellar tilt. Large joint effusion is noted as is a suprapatellar bursal effusion. CT/Extremity Lower without Contra IMPRESSION: Osteoarthritic changes of the left knee with joint effusion Stable appearance to left hip prosthesis Electronically Signed: Gonsalo Jain MD at 18:39 EST , Service support ,
== END ==
PROVIDERS: PCP Family Medicine; Referring Provider Specialist; Visit Provider Specialist
DX: M17.12 Unilateral primary osteoarthritis, left knee (principal)
CPT/HCPCS: 73700

== ENCOUNTER 2020-04-21 08:35 | Observation (INO) | payer SELFPAY, OTHER ==
[2020-01-21 17:46] VITALS: BMI 21.1
[2020-03-18 17:32] LABS: Absolute Lymphocyte Count 2.88 X10^3/uL (0.83-4.51); Absolute Neutrophil Count 5.5 X10^3/uL (2.0-7.7); Basophil# 0.12 X10^3/uL; Basophil% 1.2 % (0-1); Eosinophil# 0.27 X10^3/uL; Eosinophils% 2.7 % (0-5); Hematocrit 33.2 % (37-47); Hemoglobin 10.1 g/dL (12.0-15.0); Lymphocyte # 2.88 X10^3/ul (4.0); Lymphocyte % 28.8 % (19-41); Mean Corp Hgb Conc 30.4 g/dL (32-36); Mean Corpuscular Hgb 26.4 pg (27.0-32.0); Mean Corpuscular Volume 86.9 fL (81-99); Mean Platelet Vol. 9.1 fl (6.2-12.0); Monocyte# 1.23 X10^3/uL; Monocyte% 12.3 % (0-10); NRBC Flagged by Analyzer 0 % (0-5); Neutrophil # 5.48 X10^3/uL (2.7-7.7); Neutrophil % 54.7 % (47-70); Platelet Count 411 K/mm3 (150-450); RBC Distribution Width CV 14.9 % (11.6-14.6); RBC Distribution Width SD 47.5 fl (35.1-43.9); Red Blood Count 3.82 M/mm3 (4.2-5.4)
[2020-03-18 18:09] LABS: Anion Gap 9 (5-15); BUN 17 mg/dL (7-18); BUN/Creat Ratio 20.5 RATIO (10-20); Calcium,Total 8.8 mg/dL (8.5-10.1); Chloride 109 mmol/L (98-107); Creatinine, Serum 0.83 mg/dL (0.55-1.02); EST Glomerular Filtration Rate 79 mL/min (>60); Est Glom Filt Rate - Afr Amer 96 mL/min (>60); Glucose 84 mg/dL (74-106); Potassium 3.1 mmol/L (3.5-5.1); Sodium Level 139 mmol/L (136-145)
--- NOTE | 2020-03-19 13:20 | PCM.HP.BLA ---
History and Physical History and Physical [facility] Patient Name: Camelia Escobar : 1975 From: ARMANI ALMEIDA PA-C DATE OF SURGERY: 04/07/2020 SCHEDULED PROCEDURE: left total knee arthroplasty HISTORY OF PRESENT ILLNESS: Preoperative history and physical exam was performed on March 18, 2020. This is a 45-year-old female who is had ongoing bilateral knee pain. She recently underwent a right total knee arthroplasty on January 21, 2020. She is doing well from that procedure. She has continued to have pain in her left knee which has been progressively been getting worse. Patient has tried oral medications consisting of Tylenol and she has been on oxycodone postoperatively. She continues to struggle with her left knee. She has been through physical therapy. She is using a cane for ambulatory assistance. Since having the surgery she feels the left knee has gotten worse since she has had to rely more on the left knee. She does have medical history pertinent for rheumatoid arthritis hypertension, and depression. She currently denies any chest pain, shortness of breath, fevers chills, or recent infections. After failing conservative measures and discussing treatment options with Dr. Irwin Long, the patient does wish to proceed with a left total knee arthroplasty. REVIEW OF SYSTEMS: ROS: Const: Denies anorexia, anxiety, change in appetite, fever and weight change,hard of hearing, and vision problems. CV: Denies chest pain, heart murmur, irregular heartbeat and peripheral vascular disease. Resp: Denies asthma, cough, pneumonia, sleep apnea, shortness of breath, tuberculosis and wheezing. GI: Denies constipation, diarrhea, heartburn, nausea, bloody stools and vomiting, and difficulty swallowing. : Denies incontinence. Musculo: Denies leg swelling, trouble walking and weakness and limp. Skin: Denies Raynaud's, history of shingles and tattoo. Neuro: Denies ambulatory dysfunction, dizziness, numbness/tingling and tremor. Psych: Denies anxiety, depression, insomnia, mental illness and stress. Kar/Lymph: Denies anemia, bleeding/bruising tendency and past transfusion. Reviewed, no changes. PAST MEDICAL HISTORY: Advance Care Plan: No Advance Directives Effective Date: 06/07/2017 PMH: Medical Problems: Arthritis, High Blood Pressure, Depression, Rheumatoid Arthritis Accidents: None Surgical Hx: Section - X2 Hip Replacement Lt - (07/04/2017) SAW@[facility] RT THR - (10/31/2017) SAW @ [facility] Appendectomy - (04/2018) [facility] RT TKA - (01/21/2020) @[facility], [place] Anesthesia Complications: None Assistive Devices: Walker, Glasses Reviewed, no changes. 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 Personal Habits: Cigarette Use: Never.Alcohol: Denies use.Drug Use: Denies Use.Enjoy Exercising: Exercises 1-3 X/Week. Reviewed, no changes. VITALS: Ht: 60 Wt: 118lb Wt k.525 BMI: 23.0 BP: 138/86 Pulse: 68 Resp: 16 T: 95.5 T: 35.3C ALLERGIES: No Known Drug Allergy MEDICATIONS: Oxycodone HCL 5 mg 1-2 by mouth every 6 hours, Leflunomide 20 mg 1 by mouth every day, Lisinopril 20 mg 1 by mouth every day, Prednisone 5 mg 1 tab PO daily, Sertraline HCL 50 mg 1 by mouth every day PRE-OP EXAM: General appearance:NORMAL Other: Eyes: Conjunctivae and lids: NORMAL Pupils: ERR Ears, Nose, Mouth, and Throat: NORMAL Other: Inspection of lips, teeth and gums: NORMAL Other: Neck: Examination of neck: no masses noted. Respiratory: Assessment of respiratory effort: NORMAL Other: Auscultation of lungs: clear to auscultation no wheezes, rhonchi or rales. Cardiovascular: Auscultation of heart: regular rate and rhythm, no murmurs, gallops or rubs. Exam of carotid arteries: NORMAL Other: Gastrointestinal: Exam of abdomen: soft, nontender, nondistended bowel sounds present. PHYSICAL EXAMINATION: Left knee is cool to touch without erythema or signs of infection. She does have valgus deformity. Valgus deformity is correctable on exam. There is tenderness to palpation of the lateral joint line and medial joint line of the left knee. Range of motion: 0 extension to 120 flexion with the left knee. Positive laxity appreciated with varus stress test. Patient does walk with a limping gait. She currently uses a cane. Positive crepitus on range of motion. Stable anterior/posterior drawer. IMAGING STUDIES: X-rays of the left knee reveal valgus alignment with lateral joint space narrowing, subchondral sclerosis, osteophyte formation consistent with severe stage IV tricompartmental osteoarthritis. IMPRESSION: 1. Severe left knee tricompartmental osteoarthritis 2. Presence of right total knee arthroplasty January 21, 2020 3. Hypertension 4. Depression 5. Rheumatoid arthritis PLAN: Dr. Irwin Long did discuss and review with the patient all treatment options including surgical versus nonsurgical options. Patient does wish to proceed with the above-stated procedure. Potential risks, benefits, and complications of the procedure were discussed in detail including but not limited to , infection, nerve and blood vessel damage, persistent pain, numbness, tingling, paresthesias, blood clot, pulmonary embolism, and requirement for possible further surgery. The patient expressed full understanding and has no further questions for the doctor. Patient does agree to proceed with the above-stated procedure and has signed the surgery consent form. We discussed the current risks associated with COVID 19. This does include the risk of exposure while in the hospital. Patient was reassured local hospitals have low infection rates and are taking all necessary precautions to avoid exposure to patients. In addition, we discussed strategies that can be used to help limit exposure including those that limit the patient's time in the hospital. Also using strategies to limit the patient's need for continued inpatient services after being discharged from the hospital. Patient was notified that we will need to comply with any screening or testing the hospital wishes to perform or that surgery may be delayed for any positive results. This dictation was created using voice recognition software. Phonetic and/or grammatical errors may exist. ___ I have re-examined the patient. There are no clinical changes since date of exam. ___ See progress notes for changes. ___ Dictated on admission Date: Time: Signature:
[2020-03-23 15:34] LABS: Magnesium 2.4 mg/dL (1.6-2.6)
[2020-04-21] VITALS (16 sets, daily range): BP systolic 112–142; BP diastolic 71–93; PULSE 75–105; RESP 16–18; TEMP 36.3–36.8; O2SAT 96–100; BMI 22.0
--- NOTE | 2020-04-21 | KNEE_PTH ---
PATIENT: JERICA RAMOS LOC: [id number] U#:[id number] AGE/SX: 45/F [place] [facility] [place]: Dr. Irwin Long MD : 1975 BED: 1 DIS: 04/22/2020 SPEC #: [id number] RECD: 04/21/20 14:00 STATUS: NEEL REKeila #: [id number] SHIVANI: 04/21/20 00:[address]: Irwin Long DEPT: SURGICAL PATHOLOGY RECD BY: Juan M Marquez ENTERED: 04/22/20 07:09 SP TYPE: TOTAL KNEE OTHR DR: MD Dr. Palomo Cline MD Tissues: Knee, NOS Procedures: Decalcification bone/plaque Surgery Specimen Level IV HEADER OPERATION: ERAS, total knee replacement robotic arm assist PRE-OP DIAGNOSIS: Left total knee arthroplasty TISSUE SUBMITTED: Bone from left knee MICROSCOPIC DIAGNOSIS Bone of left knee, total knee replacement: Severe degenerative joint disease. AM:ranjit 04/28/2020 MICROSCOPIC DESCRIPTION Slides are reviewed. GROSS DESCRIPTION Received is one container designated bone left knee. The specimen consists of multiple fragments of roberts-yellow bone measuring in aggregate 11 x 9 x 2.5 cm. No soft tissue is identified. A number of bony fragments contain articular surfaces consistent with tibial plateau and femoral condyle and displaying prominent osteophyte formation, eburnation, and bone erosion. [employer] sections are submitted in one cassette after decalcification. / SJ:ranjit 04/22/20 TC:5 CPT: 48832, 02989
[2020-04-21] MEDS: Scopolamine 1mg/72hr Patch 1 PATCH TD ×2 (07:00→13:58)
[2020-04-21] MEDS: Lactated Ringers 1,000 ML 999 ML IV ×2 (07:00→09:30)
[2020-04-21] MEDS: Lactated Ringers 1,000 ML 125 ML IV ×5 (07:00→22:55)
--- NOTE | 2020-04-21 07:21 | RAD_ITS ---
STUDY: X-RAY - LEFT KNEE REASON FOR EXAM: Female, 45 years old. Postoperative evaluation. TECHNIQUE: 2 view(s) of the knee. COMPARISON: None. FINDINGS: There is a 3 component total knee arthroplasty in anatomic position. There are expected post-operative findings. There are no complications. No other significant abnormality is identified. RAD/Knee 1 or 2 Views IMPRESSION: Total knee arthroplasty in anatomic alignment without complications. Electronically Signed: Nicholas Randhawa MD at 13:19 EST , Service support ,
[2020-04-21 09:10] LABS: Bedside Glucose 106 mg/dL (70-110)
[2020-04-21] MEDS: Acetaminophen 500 MG Tablet 1000 MG PO ×3 (09:31→22:11)
[2020-04-21] MEDS: Celecoxib 200 MG Capsule 400 MG PO (09:32)
[2020-04-21] MEDS: Gabapentin 600 MG Tablet PO (09:32)
[2020-04-21] MEDS: Cefazolin 2 GM in 0.9% Normal Saline 100 ML IV (10:12)
[2020-04-21] MEDS: dexAMETHasone 10 MG/ML Vial IV (10:45)
--- NOTE | 2020-04-21 11:57 | OP.PCM_ITS ---
Report of Operation Date of Procedure: 04/21/20 Pre-Operative Diagnosis: Left knee secondary osteoarthritis, rheumatoid ar thritis Post-Operative Diagnosis: Left knee secondary osteoarthritis, rheumatoid arthritis Surgery/Procedure Performed:: Left knee minimally invasive robotic assisted total knee replacement Description of Surgical Findings:: Stable knee with good patella tracking, stage IV joint arthrosis.. 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 [place] size 2 triathlon cruciate retaining distal femoral press-fit component 2. [place] size 2 press-fit tritanium tibial baseplate 3. [place] X3 9 mm CS polyethylene 4. [place] X3 29 mm asymmetric patella Brief history operative indications: 45-year-old female with history of left rheumatoid arthritis with secondary knee osteoarthritis with radiographic findings with loss of joint space, osteophyte formation and subchondral sclerosis. Failed conservative measures as mentioned in the H&P. Discussion of total knee arthroplasty as well as risk and benefits were discussed the patient including but not limited to blood loss, DVTs, PEs, neurovascular damage, general risk of anesthesia including loss of life, and stiffness or instability were discussed with patient. Patient demonstrated understanding and was able to sign informed consent. Procedure: On the date of procedure patient's left lower extremity was marked in the preoperative area. The patient was then taken back to the operating room where the patient was placed on the table in the supine position. All bony prominences were identified a well-padded. Anesthesia assumed control of the C-spine and airway and remained controlled throughout the remainder of the procedure. A tourniquet was placed on the left upper thigh and the leg was prepped in a sterile fashion. The surgeon then scrubbed at this time .Upon reentering the room left lower extremity was draped in a standard orthopedic fashion. A timeout was then called and everyone agreed upon the side, the site, the procedure to be performed, patient's identity and antibiotics given. Esmarch bandage was used to exsanguinate the extremity and the tourniquet was placed up to 250 mmHg with the knee in flexion. A midline skin incision was made and sharp dissection was taken down through skin subcutaneous tissue and fat. The standard medial parapatellar incision was made and the patella was subluxed laterally. An Appropriate deep MCL release was done and the fat pad was resected. Our attention was then directed to the patella. The patella was everted and a flat resection was made. The knee was then flexed up in 2 femoral pins were placed inside the incision and 2 tibial pins were placed outside the incision in the medial tibia bicortically. Once this was completed the 2 checkpoints in the femur and tibia were placed. Knee was then flexed up and the bony landmarks were registered. Once this was completed knee was taken through range of motion and manually stressed allowing us to a plan for an appropriate tibial cut. The robotic arm was brought into the field sterilely and checkpoint and saw were registered. Based on the patient's deformity the tibial cut was made in 1 degree of varus. At this time the tensioner was then placed in the joint and ligament tension was checked at 90 degrees and full extension. Based on the patient's ligamentous tension appropriate adjustments were made to the operative plan and ligament releases were done. Once we were happy with our operative plan with balanced flexion and extension gaps our attention was directed to the femur. The robot was brought into the field sterilely and registered. Posterior condylar cuts, anterior chamfer cuts and anterior cuts were appropriately made for a size 2 femur. When these were completed the saws were switched out in the distal femoral and posterior chamfer cuts were made. Protecting the soft tissue throughout this time. A size 2 tibial base plate was selected. the knee was flexed to 90 degrees and the soft tissues and posterior osteophytes were removed from the joint. 40 cc of the periarticular injection was injected into the posterior medial corner of the joint. The appropriate trials were then placed on the femur and tibia. A trial polyethylene was trialed to ensure proper balancing and stability of the knee. The appropriate tibial internal rotation was then marked with a bovie. Our attention was then directed to the patella. The lug holes were drilled and the patella trial was placed. Patellar tracking was checked and deemed appropriate. Once we were happy lug holes were drilled for the femur and trial components were removed. the tibia was subluxed and pinned into place and the keel was punched and drilled appropriately. Final components were verified and opened, and cement was mixed in a vacuum. [employer] Simplex cement was used. The wound was copiously irrigated with normal saline. When the cement was ready the components were impacted into place starting with the tibia, after the tibia was in place the press-fit was tested Femur and finally cementing the patella. The trial poly component was placed and the knee was placed in full extension. All excess cement was removed in the process. Once the cement had cured the tracking, alignment and balance were verified and a size 9 mm CS polyethylene component was placed. Once the final components were placed a 3-minute dilute Betadine lavage was performed followed by an Irrisept lavage was performed and the wound was copiously irrigated with normal saline solution and the periarticular injection was given. The wound was closed in a layer hernandez fashion using #1 vicryl interrupted sutures for the arthrotomy, 2-0 interrupted Vicryl suture for the subcuticular layer and elvis for final skin closure. A sterile compressive dressing was then placed. The patient was then awakened from anesthesia, transferred to the [facility] and transferred to the PACU for recovery. Post op plan DVT ppx: ASA 81mg BID, thigh high compression stockings Follow up: in office in 2 weeks for wound check PT: to start POD #0 at hospital, outpatient PT should be arranged. Due to the complexity of this case robotic arm was used to assist in the surgery to improve accuracy and clinical outcomes. - Complications No intraoperative complications family - Admit VTE Documentation VTE Present on Admission: No VTE Mechan Device Prophylaxis: SCD's, Thigh High MESERET Hose VTE Pharm Prophylaxis ordered?: Yes
--- NOTE | 2020-04-21 14:58 | PCM.PN.HOSP ---
Reason for Visit: Consult for postop medical management: Subjective: 45-year-old female with past medical history of rheumatoid arthritis, complicated by severe arthritis, deformities of her hands who comes in for elective left total knee arthroplasty. She has a history of right total knee arthroplasty in January 2020. She complains of pain in the left knee that has been progressively worse, failed outpatient therapy. Patient was seen in the immediate postop period. Denied any pain in her left knee. Denied any fever or chills or chest pain or dizziness or palpitation. Vitals were reviewed, appears stable. On room air. Last blood work done on 03/18/20 shows hypokalemia 3.1 with magnesium of 2.4 Vitals/I&O's: Vital Signs Temp Pulse Resp BP Pulse Ox 98.2 F 79 18 120/75 100 04/21/20 14:15 04/21/20 14:15 04/21/20 14:15 04/21/20 14:15 04/21/20 14:15 Oxygen Flow Rate (L/min) 6 Oxygen Delivery Method Simple Mask Weight: 54.6 kg Body Mass Index (BMI) 22.0 Intake and Output for Last 24 Hours 04/19/20 04/20/20 04/21/20 23:59 23:59 23:59 Intake Total 2516.33 / 2516.33 Balance 2516.33 / 2516.33 General: Alert, Oriented x3, Cooperative, No apparent distress HEENT: Atraumatic, PERRLA, EOMI, Normocephalic Oral: Moist Mucosa Neck: Supple Lungs: Clear to auscultation, Normal air movement Cardiovascular: Regular rate, Regular Rhythm, Normal S1, Normal S2, No murmurs Abdomen: Bowel Sounds Present, Soft, Non Tender, Non-Distended, No Hepato-splenomegaly Extremities: No edema Skin: No rashes, No breakdown Musculoskeletal: No Tenderness to Palpation of Joints or Extremities, - - Cooling mats over the left knee, 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 with atrophy of the thenar and hypothenar muscles Neurological: Cranial nerves II-XII grossly intact Psych/Mental Status: Normal Affect, Appropriate Microbiology Past 72 Hours 04/20/20 09:15 Interface Orders SARS-CoV-2 Antigen (Rapid) - Final Laboratory Results 04/21/20 09:06: POC Glucose 106 Current Medications Acetaminophen (Acetaminophen 500 Mg Tablet) 1,000 mg PO Q8 [facility] Aspirin (Aspirin 81 Mg Tab.Chew) 81 mg PO BIDCM [facility] Enteral Nutritional Formula (Ensure Surgery 237 Ml Liquid) 237 ml PO TIDCM [facility] Last Admin: 04/21/20 13:53 Dose: Not Given Documented by: Famotidine (Famotidine 20 Mg Tablet) 20 mg PO DAILY [facility] Lactated Ringer's () 1,000 mls @ 125 mls/hr IV .Q8H [facility] Stop: 04/21/20 14:59 Last Infusion: 04/21/20 14:37 Dose: Infused Documented by: Lactated Ringer's () 1,000 mls @ 125 mls/hr IV .Q8H [facility] Last Admin: 04/21/20 14:37 Dose: 125 mls/hr Documented by: Cefazolin Sodium () 1 gm in 50 mls @ 150 mls/hr IV Q8H [facility] Stop: 04/22/20 02:19 Insulin Human Lispro (Insulin Lispro 100 Unit/Ml Insuln.Pen) 1 - 6 unit SC Q4H PRN PRN; Protocol PRN Reason: BG>/= 180, SEE PROTOCOL Stop: 04/21/20 18:00 Ketorolac Tromethamine (Ketorolac 15 Mg/Ml Vial) 15 mg IV Q6H PRN PRN PRN Reason: Pain Score 1-5 Stop: 04/23/20 07:21 Leflunomide (Leflunomide 10 Mg Tablet) 20 mg PO DAILY [facility] Lisinopril (Lisinopril 20 Mg Tablet) 20 mg PO DAILY [facility] Meloxicam (Meloxicam 7.5 Mg Tablet) 7.5 mg PO BID [facility] Metoprolol Tartrate (Metoprolol Tartrate 50 Mg Tablet) 50 mg PO BID [facility] Morphine Sulfate (Morphine 2 Mg/Ml Syringe) 2 - 4 mg IV Q2H PRN PRN PRN Reason: Pain Score 6-10 Morphine Sulfate (Morphine 4 Mg/Ml Syringe) 2 - 4 mg IV Q2H PRN PRN PRN Reason: Pain Score 6-10 Ondansetron HCl (Ondansetron 4 Mg/2 Ml Vial) 4 mg IV Q8H PRN PRN PRN Reason: NAUSEA Oxycodone HCl (Oxycodone 5 Mg Tablet) 5 - 10 mg PO Q4H PRN PRN PRN Reason: Pain Score 4-10 Prednisone (Prednisone 5 Mg Tablet) 5 mg PO DAILYCM [facility] Promethazine HCl (Promethazine 25 Mg/Ml Syringe) 12.5 mg IM Q6H PRN PRN; Protocol PRN Reason: NAUSEA/VOMITING Senna/Docusate Sodium (Senna/Docusate Sodium 1 Tablet) 2 tablet PO BID [facility] Sertraline HCl (Sertraline 50 Mg Tablet) 50 mg PO DAILY [facility] Sodium Chloride (0.9% Nacl Peripheral Flush Adult/Peds) 5 - 15 ml IV UD PRN PRN Reason: SALINE FLUSH Sodium Chloride (0.9% Saline Lock 10 Ml Syringe) 10 - 40 ml IV UD PRN PRN Reason: SALINE FLUSH STROKE Vital Signs/Narrative: Vital Signs Temp Pulse Resp BP Pulse Ox 04/21/20 14:15 98.2 F 79 18 120/75 100 04/21/20 13:33 97.4 F L 86 16 117/82 H 100 04/21/20 13:30 80 16 117/82 H 100 04/21/20 13:15 82 16 112/79 100 04/21/20 13:03 93 113/75 100 04/21/20 12:46 86 16 117/76 100 04/21/20 12:30 99 18 117/77 100 04/21/20 12:21 97.5 F L 105 H 16 120/80 100 Medical Necessity - Tobacco Use Smoking Status: Never smoker Tobacco Use: Non-smoker Assessment/Plan All Active Problems Status post right knee replacement (Acute) 1. Postop day #0 status post left knee minimally invasive robotic assisted total knee replacement Continue with pain management and wound recommendation per primary orthopedic team -scheduled Tylenol, as needed Toradol, oxycodone and morphine as needed 2. Hypertension, controlled, on continue with home regimen -lisinopril and metoprolol 3. Hypokalemia, noted on previous blood work on 03/18/20 Repeat BMP stat to follow-up on previous hypokalemia 4. 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 Depression, continue Zoloft 6. DVT prophylaxis per primary orthopedic team?aspirin twice daily Inpatient E&M: 08233 Init Hosp L2
[2020-04-21 15:47] LABS: Anion Gap 8 (5-15); BUN 11 mg/dL (7-18); BUN/Creat Ratio 14.4 RATIO (10-20); Calcium,Total 7.9 mg/dL (8.5-10.1); Chloride 114 mmol/L (98-107); Creatinine, Serum 0.76 mg/dL (0.55-1.02); EST Glomerular Filtration Rate 88 mL/min (>60); Est Glom Filt Rate - Afr Amer 106 mL/min (>60); Estimated Creatinine Clearance 74.71 ml/min; Glucose 228 mg/dL (74-106); Potassium 3.4 mmol/L (3.5-5.1); Sodium Level 142 mmol/L (136-145)
[2020-04-21] MEDS: Aspirin 81 MG TAB.CHEW PO (16:25)
[2020-04-21] MEDS: Famotidine 20 MG Tablet PO (16:25)
[2020-04-21] MEDS: Leflunomide 10 MG TABLET 20 MG PO (16:26)
[2020-04-21] MEDS: Sertraline 50 MG Tablet PO (16:26)
[2020-04-21] MEDS: Metoprolol Tartrate 50 MG Tablet PO (16:26)
[2020-04-21] MEDS: predniSONE 5 MG Tablet PO (16:26)
[2020-04-21] MEDS: Lisinopril 20 MG Tablet PO (16:27)
[2020-04-21] MEDS: Senna/Docusate Sodium 1 Tablet 2 TABLET PO ×2 (16:27→22:12)
[2020-04-21] MEDS: Ensure Surgery 237 ML LIQUID PO (16:37)
[2020-04-21] MEDS: Cefazolin 1 GM/50 ML BAG IV (18:16)
[2020-04-21] MEDS: oxyCODONE 5 MG Tablet PO (18:35)
[2020-04-21] MEDS: Ketorolac 15 MG/ML Vial IV (22:12)
[2020-04-21] MEDS: 0.9% NaCl Peripheral Flush Adult/Peds IV (23:04)
[2020-04-22] MEDS: Cefazolin 1 GM/50 ML BAG IV (01:56)
[2020-04-22 02:03] VITALS: BP 109/68; PULSE 84; RESP 18; TEMP 36.7; O2SAT 98
[2020-04-22] MEDS: oxyCODONE 5 MG Tablet PO ×4 (05:20→14:46)
[2020-04-22] MEDS: Acetaminophen 500 MG Tablet 1000 MG PO ×2 (05:20→14:46)
[2020-04-22] MEDS: 0.9% NaCl Peripheral Flush Adult/Peds IV ×2 (05:21→06:16)
[2020-04-22 05:23] VITALS: BP 109/63; PULSE 66; RESP 16; TEMP 36.7; O2SAT 95
[2020-04-22] MEDS: Ketorolac 15 MG/ML Vial IV (06:15)
[2020-04-22 07:02] LABS: Hemoglobin 7.7 g/dL (12.0-15.0); Mean Corp Hgb Conc 30.8 g/dL (32-36); Mean Corpuscular Hgb 25.2 pg (27.0-32.0); Mean Corpuscular Volume 81.7 fL (81-99); Mean Platelet Vol. 10.3 fl (6.2-12.0); Platelet Count 299 K/mm3 (150-450); RBC Distribution Width CV 15.7 % (11.6-14.6); RBC Distribution Width SD 47.1 fl (35.1-43.9); Red Blood Count 3.06 M/mm3 (4.2-5.4); White Blood Count 13.3 K/mm3 (4.4-11.0)
[2020-04-22 07:29] LABS: Anion Gap 6 (5-15); BUN 11 mg/dL (7-18); BUN/Creat Ratio 20.2 RATIO (10-20); Calcium,Total 7.6 mg/dL (8.5-10.1); Chloride 113 mmol/L (98-107); Creatinine, Serum 0.54 mg/dL (0.55-1.02); EST Glomerular Filtration Rate 129 mL/min (>60); Est Glom Filt Rate - Afr Amer 156 mL/min (>60); Estimated Creatinine Clearance 105.15 ml/min; Glucose 102 mg/dL (74-106); Potassium 3.4 mmol/L (3.5-5.1); Sodium Level 142 mmol/L (136-145)
--- NOTE | 2020-04-22 08:28 | PCM.PN.ORT ---
Subjective: The patient was sitting in bed eating breakfast upon examination. Patient denies any chest pain, shortness of breath, dizziness, lightheadedness, nausea or vomiting, or calf pain. Pain is controlled on medications. No adverse overnight events. Patient did report having some feeling of passing out yesterday after walking. She states this has improved significantly and denies any symptoms this morning. She does have chronic anemia. Patient does have folic acid and ferrous sulfate at home but has small amount. Patient had a similar drop in her hemoglobin from her previous surgeries. She did drop from 10.1-7.7 today with her hemoglobin. She currently is asymptomatic this morning with no dizziness, lightheadedness or feelings of syncope. Her vitals have been stable today. Patient has not had physical therapy this morning yet. Objective: Vital signs stable and afebrile. Patient is able to plantarflex and dorsiflex actively. Sensation is intact to light touch to saphenous, sural, superficial and deep peroneal, and tibial distribution. Dressing is clean dry and intact. Negative Homans bilaterally, negative signs and symptoms of DVT. - Physical Exam Vitals/I&O's: Vital Signs Temp Pulse Resp BP Pulse Ox 98.0 F 66 16 109/63 95 04/22/20 05:23 04/22/20 05:23 04/22/20 05:23 04/22/20 05:23 04/22/20 05:23 Oxygen Flow Rate (L/min) 6 Oxygen Delivery Method Room Air Weight: 54.6 kg Body Mass Index (BMI) 22.0 Intake and Output for Last 24 Hours 04/20/20 04/21/20 04/22/20 23:59 23:59 23:59 Intake Total 4963.83 / 4963.83 1735.42 / 1735.42 Output Total 500 / 700 800 / 800 Balance 4463.83 / 4263.83 935.42 / 935.42 General: Alert, Oriented x3, Cooperative, No apparent distress Microbiology Past 72 Hours 04/20/20 09:15 Interface Orders SARS-CoV-2 Antigen (Rapid) - Final Laboratory Results 04/21/20 09:06: POC Glucose 106 04/21/20 15:21: Sodium 142, Potassium 3.4 L, Chloride 114 H, Carbon Dioxide 20.0 L, Anion Gap 8, BUN 11, Creatinine 0.76, Estim Creat Clear Calc 74.71, Est GFR (MDRD) Af Amer 106, Est GFR (MDRD) Non-Af 88, BUN/Creatinine Ratio 14.4, Glucose 228 H, Calcium 7.9 L 04/22/20 06:25: WBC 13.3 H, RBC 3.06 L, Hgb 7.7 L, Hct 25.0 L, MCV 81.7, MCH 25.2 L, MCHC 30.8 L, RDW Std Deviation 47.1 H, RDW Coeff of Josh 15.7 H, Plt Count 299, MPV 10.3 04/22/20 06:25: Sodium 142, Potassium 3.4 L, Chloride 113 H, Carbon Dioxide 23.0, Anion Gap 6, BUN 11, Creatinine 0.54 L, Estim Creat Clear Calc 105.15, Est GFR (MDRD) Af Amer 156, Est GFR (MDRD) Non-Af 129, BUN/Creatinine Ratio 20.2 H, Glucose 102, Calcium 7.6 L Current Medications Acetaminophen (Acetaminophen 500 Mg Tablet) 1,000 mg PO Q8 [facility] Last Admin: 04/22/20 05:20 Dose: 1,000 mg Documented by: Aspirin (Aspirin 81 Mg Tab.Chew) 81 mg PO BIDCM [facility] Last Admin: 04/21/20 16:25 Dose: 81 mg Documented by: Enteral Nutritional Formula (Ensure Surgery 237 Ml Liquid) 237 ml PO TIDCM [facility] Last Admin: 04/21/20 16:37 Dose: 237 ml Documented by: Famotidine (Famotidine 20 Mg Tablet) 20 mg PO DAILY [facility] Last Admin: 04/21/20 16:25 Dose: 20 mg Documented by: Ketorolac Tromethamine (Ketorolac 15 Mg/Ml Vial) 15 mg IV Q6H PRN PRN PRN Reason: Pain Score 1-5 Stop: 04/23/20 07:21 Last Admin: 04/22/20 06:15 Dose: 15 mg Documented by: Leflunomide (Leflunomide 10 Mg Tablet) 20 mg PO DAILY [facility] Last Admin: 04/21/20 16:26 Dose: 20 mg Documented by: Lisinopril (Lisinopril 20 Mg Tablet) 20 mg PO DAILY [facility] Last Admin: 04/21/20 16:27 Dose: 20 mg Documented by: Meloxicam (Meloxicam 7.5 Mg Tablet) 7.5 mg PO BID [facility] Metoprolol Tartrate (Metoprolol Tartrate 50 Mg Tablet) 50 mg PO BID [facility] Last Admin: 04/21/20 22:34 Dose: Not Given Documented by: Morphine Sulfate (Morphine 2 Mg/Ml Syringe) 2 - 4 mg IV Q2H PRN PRN PRN Reason: Pain Score 6-10 Morphine Sulfate (Morphine 4 Mg/Ml Syringe) 2 - 4 mg IV Q2H PRN PRN PRN Reason: Pain Score 6-10 Ondansetron HCl (Ondansetron 4 Mg/2 Ml Vial) 4 mg IV Q8H PRN PRN PRN Reason: NAUSEA Oxycodone HCl (Oxycodone 5 Mg Tablet) 5 - 10 mg PO Q4H PRN PRN PRN Reason: Pain Score 4-10 Last Admin: 04/22/20 05:20 Dose: 5 mg Documented by: Prednisone ([facility] 5 Mg Tablet) [facility] Admin: 04/21/20 16:26 Dose: 5 mg Documented by: Promethazine HCl (Promethazine 25 Mg/Ml Syringe) 12.5 mg IM Q6H PRN PRN; Protocol PRN Reason: NAUSEA/VOMITING Senna/Docusate Sodium (Senna/Docusate Sodium 1 Tablet) 2 tablet PO BID [facility] Last Admin: 04/21/20 22:12 Dose: 2 tablet Documented by: Sertraline HCl (Sertraline 50 Mg Tablet) 50 mg PO DAILY [facility] Last Admin: 04/21/20 16:26 Dose: 50 mg Documented by: Sodium Chloride (0.9% Nacl Peripheral Flush Adult/Peds) 5 - 15 ml IV UD PRN PRN Reason: SALINE FLUSH Last Admin: 04/22/20 06:16 Dose: 10 ml Documented by: Sodium Chloride (0.9% Saline Lock 10 Ml Syringe) 10 - 40 ml IV UD PRN PRN Reason: SALINE FLUSH Medical Necessity - Tobacco Use Smoking Status: Never smoker Tobacco Use: Non-smoker Assessment/Plan All Active Problems Status post right knee replacement (Acute) 1. S/P left total knee arthroplasty POD #1 2. Continue Pain Medications: Tylenol, meloxicam, oxycodone 3. DVT Prophylaxis: Take 81 mg aspirin twice daily for 4 weeks postoperatively for DVT prophylaxis 4. PT/OT: Weightbearing as tolerated 5. H & H: 7.7/25.0, asymptomatic this morning. Acute on chronic anemia. Ferrous sulfate and folic acid was added to her medication list. We will continue to monitor her symptoms today and vitals. She currently is asymptomatic but yesterday did have some feeling of syncope but this has resolved. 6. Reactive leukocytosis: 13.3, afebrile. Patient did receive Decadron intraoperatively 7. Continue postoperative medical management per medicine 8. Encouraged Incentive Spirometry 9. Disposition: Plan will be for possible discharge home today. However, we will see how patient does with physical therapy for her 2 sessions. If she experiences any dizziness or lightheadedness or feelings of syncope we will keep her for an additional night. We will continue to follow her vitals. Ferrous sulfate and folic acid was added. Patient does have chronic anemia in which she has been using ferrous sulfate and folic acid in the past. I would like patient to follow-up with the primary care physician in 1 week for repeat lab work if she does get discharged home today. Prescriptions will be E scribed to [facility] in [facility]. She does have outpatient physical therapy established. She will follow-up per postop instructions. I have reviewed the [place] Automated Rx Reporting System (OARRS) report for this patient for refill pattern and other prescriber involvement as part of the appropriate surveillance for the provision of acute and chronic controlled medications. The report was requested and reviewed on the date of this entry and was considered in the prescribing process.
--- NOTE | 2020-04-22 09:03 | DCINST_ITS ---
Discharge Diet: No Restrictions Discharge Activity: May Not Drive May shower in (days): 1 - Okay to shower if dressing is intact to skin. Turn dressing away from water. Do not submerge underwater for 6 weeks postoperatively. Ice area for (Minutes): 20 - Every 1-2 hours while awake Weight Bearing Status: Weight bearing as tolerated Elevate: Operative Extremity Additional Activity Instructions:: Wear elastic stockings for 2 weeks after your surgery. Call your doctor if your incision/area has: Continuous Slow Oozing, Sudden Increased Bleeding, Increased Pain/ Swelling, Increased Redness, Foul Smelling Discharge Call your doctor if you observe: Fever of 101 or Higher, Coldness, Increased Pain, Numbness or Tingling, Change in Color, Calf discomfort, Uncontrolled pain Remove Dressing in (days):: 4 - Okay to remove dressing on April 26, 2020 Additional Instructions: Follow [facility] Post-op Instructions. Once postoperative dressing has been removed only use gentle soap and water over the incision. Do not use any ointments, Neosporin, salves, alcohol pads over the incision for 6 weeks postoperatively. Do not submerge underwater for 6 weeks postoperatively. Allergies/Adverse Reactions: Allergies No Known Allergies Allergy (Verified 04/21/20 08:55) Medications to take at Discharge Leflunomide 20 mg PO DAILY 06/15/17 Lisinopril [Zestril] 20 mg PO DAILY 06/15/17 Metoprolol Tartrate [Lopressor (beta el)] 50 mg PO BID 06/15/17 Prednisone 5 mg PO DAILY 06/15/17 Sertraline HCl [Zoloft] 50 mg PO DAILY 06/15/17 Acetaminophen [Tylenol] 1,000 mg PO Q8 #100 tab 04/22/20 Aspirin [Aspirin, Baby] 81 mg PO BIDCM #60 tab.chew 04/22/20 Famotidine [Pepcid] 20 mg PO DAILY #30 tab 04/22/20 Ferrous Sulfate 325 mg PO BIDCM #60 tab 04/22/20 Folic Acid 1 mg PO DAILY@0800 #30 tab 04/22/20 Meloxicam [Mobic] 7.5 mg PO BID #60 tab 04/22/20 Oxycodone [Oxyir] 5 - 10 mg PO Q4H PRN PRN 5 Days #60 tab 04/22/20 Senna/Docusate Sodium [Senokot-S] 2 tab PO BID #10 tab 04/22/20 The following prescriptions were given: Aspirin [Aspirin, Baby] 81 mg PO BIDCM #60 tab.chew Transmission Status: Received by [facility] Ferrous Sulfate 325 mg PO BIDCM #60 tab Transmission Status: Received by [facility] Folic Acid 1 mg PO DAILY@0800 #30 tab Transmission Status: Received by [facility] Meloxicam [Mobic] 7.5 mg PO BID #60 tab Transmission Status: Received by [facility] Oxycodone [Oxyir] 5 - 10 mg PO Q4H PRN PRN 5 Days #60 tab PRN Reason: Pain Score 4-10 Transmission Status: Received by [facility] Famotidine [Pepcid] 20 mg PO DAILY #30 tab Transmission Status: Received by [facility] Senna/Docusate Sodium [Senokot-S] 2 tab PO BID #10 tab Transmission Status: Received by [facility] Acetaminophen [Tylenol] 1,000 mg PO Q8 #100 tab Transmission Status: Received by [facility] Orders to be completed after discharge: Potassium Time Frame: 03/24/20, Facility: [facility], Location: Laboratory Primary Care Physician: Palomo Brown MD [Primary Care Provider] - Please follow up with your Primary Care Physician in: Follow-up 1 week for acute on chronic anemia and lab work Test Results: Test results from this visit will be discussed in further detail at your follow- up appointment, if applicable. Please Follow Up With: Physical Therapy When: 04/26/20 Please Follow Up With: Eligio Schwarz PA-C When: 05/05/20 @ 11:00
[2020-04-22 09:40] VITALS: BP 131/81; PULSE 80; RESP 18; TEMP 36.7; O2SAT 97
[2020-04-22 09:52] VITALS: PULSE 75
[2020-04-22] MEDS: Aspirin 81 MG TAB.CHEW PO (09:52)
[2020-04-22] MEDS: Leflunomide 10 MG TABLET 20 MG PO (09:52)
[2020-04-22] MEDS: Folic Acid 1 MG Tablet PO (09:52)
[2020-04-22] MEDS: Metoprolol Tartrate 50 MG Tablet PO (09:52)
[2020-04-22] MEDS: Ferrous Sulfate 325 MG Tablet PO (09:52)
[2020-04-22] MEDS: Famotidine 20 MG Tablet PO (09:56)
[2020-04-22] MEDS: Sertraline 50 MG Tablet PO (09:56)
[2020-04-22] MEDS: Lisinopril 20 MG Tablet PO (09:57)
[2020-04-22] MEDS: predniSONE 5 MG Tablet PO (09:57)
[2020-04-22] MEDS: Senna/Docusate Sodium 1 Tablet 2 TABLET PO (09:57)
--- NOTE | 2020-04-22 11:36 | PCM.PN.HOSP ---
<Jabari Ivan - Last Filed: 04/22/20 11:53> Reason for Visit: post op right total knee. Subjective: Pt resting comfortably in chair at bedside, NAD. Pt with good pain control. No N/V/D. No fever/chills. No LH/dizziness. No SOB/cough. Vitals/I&O's: Vital Signs Temp Pulse Resp BP Pulse Ox 98.0 F 75 18 131/81 H 97 04/22/20 09:40 04/22/20 09:52 04/22/20 09:40 04/22/20 09:40 04/22/20 09:40 Oxygen Flow Rate (L/min) 6 Oxygen Delivery Method Room Air Weight: 120 lb 5.958 oz Body Mass Index (BMI) 22.0 Intake and Output for Last 24 Hours 04/20/20 04/21/20 04/22/20 23:59 23:59 23:59 Intake Total 4963.83 / 4963.83 1735.42 / 1735.42 Output Total 500 / 700 800 / 800 Balance 4463.83 / 4263.83 935.42 / 935.42 General: Alert, Oriented x3, Cooperative HEENT: Atraumatic, PERRLA, EOMI, Normocephalic Neck: Supple, No JVD, Negative Carotid Bruits Lungs: Clear to auscultation, Normal air movement Cardiovascular: Regular rate, No murmurs Abdomen: Bowel Sounds Present, Soft, Non Tender Extremities: No edema, Capillary Refill Less than 3 Seconds Skin: No rashes, No breakdown Musculoskeletal: No Tenderness to Palpation of Joints or Extremities, - - distal PMS intact. Neurological: Cranial nerves II-XII grossly intact Psych/Mental Status: Normal Affect, Appropriate, Alert and oriented to time, place, person, mood and affect Microbiology Past 72 Hours 04/20/20 09:15 Interface Orders SARS-CoV-2 Antigen (Rapid) - Final Laboratory Results 04/21/20 15:21: Sodium 142, Potassium 3.4 L, Chloride 114 H, Carbon Dioxide 20.0 L, Anion Gap 8, BUN 11, Creatinine 0.76, Estim Creat Clear Calc 74.71, Est GFR (MDRD) Af Amer 106, Est GFR (MDRD) Non-Af 88, BUN/Creatinine Ratio 14.4, Glucose 228 H, Calcium 7.9 L 04/22/20 06:25: WBC 13.3 H, RBC 3.06 L, Hgb 7.7 L, Hct 25.0 L, MCV 81.7, MCH 25.2 L, MCHC 30.8 L, RDW Std Deviation 47.1 H, RDW Coeff of Josh 15.7 H, Plt Count 299, MPV 10.3 04/22/20 06:25: Sodium 142, Potassium 3.4 L, Chloride 113 H, Carbon Dioxide 23.0, Anion Gap 6, BUN 11, Creatinine 0.54 L, Estim Creat Clear Calc 105.15, Est GFR (MDRD) Af Amer 156, Est GFR (MDRD) Non-Af 129, BUN/Creatinine Ratio 20.2 H, Glucose 102, Calcium 7.6 L Current Medications Acetaminophen (Acetaminophen 500 Mg Tablet) 1,000 mg PO Q8 [facility] Last Admin: 04/22/20 05:20 Dose: 1,000 mg Documented by: Aspirin (Aspirin 81 Mg Tab.Chew) 81 mg PO BIDCM [facility] Last Admin: 04/22/20 09:52 Dose: 81 mg Documented by: Enteral Nutritional Formula (Ensure Surgery 237 Ml Liquid) 237 ml PO TIDCM [facility] Last Admin: 04/22/20 09:57 Dose: Not Given Documented by: Famotidine (Famotidine 20 Mg Tablet) 20 mg PO DAILY [facility] Last Admin: 04/22/20 09:56 Dose: 20 mg Documented by: Ferrous Sulfate (Ferrous Sulfate 325 Mg Tablet) 325 mg PO 1200,1700 [facility] Last Admin: 04/22/20 09:52 Dose: 325 mg Documented by: Folic Acid (Folic Acid 1 Mg Tablet) 1 mg PO DAILY@0800 [facility] Last Admin: 04/22/20 09:52 Dose: 1 mg Documented by: Ketorolac Tromethamine (Ketorolac 15 Mg/Ml Vial) 15 mg IV Q6H PRN PRN PRN Reason: Pain Score 1-5 Stop: 04/23/20 07:21 Last Admin: 04/22/20 06:15 Dose: 15 mg Documented by: Leflunomide (Leflunomide 10 Mg Tablet) 20 mg PO DAILY [facility] Last Admin: 04/22/20 09:52 Dose: 20 mg Documented by: Lisinopril (Lisinopril 20 Mg Tablet) 20 mg PO DAILY [facility] Last Admin: 04/22/20 09:57 Dose: 20 mg Documented by: Meloxicam (Meloxicam 7.5 Mg Tablet) 7.5 mg PO BID [facility] Metoprolol Tartrate (Metoprolol Tartrate 50 Mg Tablet) 50 mg PO BID [facility] Last Admin: 04/22/20 09:52 Dose: 50 mg Documented by: Morphine Sulfate (Morphine 2 Mg/Ml Syringe) 2 - 4 mg IV Q2H PRN PRN PRN Reason: Pain Score 6-10 Morphine Sulfate (Morphine 4 Mg/Ml Syringe) 2 - 4 mg IV Q2H PRN PRN PRN Reason: Pain Score 6-10 Ondansetron HCl (Ondansetron 4 Mg/2 Ml Vial) 4 mg IV Q8H PRN PRN PRN Reason: NAUSEA Oxycodone HCl (Oxycodone 5 Mg Tablet) 5 - 10 mg PO Q4H PRN PRN PRN Reason: Pain Score 4-10 Last Admin: 04/22/20 11:01 Dose: 5 mg Documented by: Prednisone ([facility] 5 Mg Tablet) [facility] Admin: 04/22/20 09:57 Dose: 5 mg Documented by: Promethazine HCl (Promethazine 25 Mg/Ml Syringe) 12.5 mg IM Q6H PRN PRN; Protocol PRN Reason: NAUSEA/VOMITING Senna/Docusate Sodium (Senna/Docusate Sodium 1 Tablet) 2 tablet PO BID [facility] Last Admin: 04/22/20 09:57 Dose: 2 tablet Documented by: Sertraline HCl (Sertraline 50 Mg Tablet) 50 mg PO DAILY [facility] Last Admin: 04/22/20 09:56 Dose: 50 mg Documented by: Sodium Chloride (0.9% Nacl Peripheral Flush Adult/Peds) 5 - 15 ml IV UD PRN PRN Reason: SALINE FLUSH Last Admin: 04/22/20 06:16 Dose: 10 ml Documented by: Sodium Chloride (0.9% Saline Lock 10 Ml Syringe) 10 - 40 ml IV UD PRN PRN Reason: SALINE FLUSH STROKE Vital Signs/Narrative: Vital Signs Temp Pulse Resp BP Pulse Ox 04/22/20 09:52 75 04/22/20 09:40 98.0 F 80 18 131/81 H 97 Medical Necessity - Tobacco Use Smoking Status: Never smoker Tobacco Use: Non-smoker Assessment/Plan All Active Problems Status post right knee replacement (Acute) 1. Left total knee POD#1 - care as per ortho. pain controlled. minimal complaints. 2. HTN - stable 3. Hypokalemia - replete. continue lisinopril. reckeck at f/u with PCP. 4. RA - continue home meds. on chronic prednisone - raises infection risk. 5. Depression - zoloft 6. Chronic normocytic anemia - pt has decreased hgb c/w prior post surgical changes. no further work up at this time. recheck CBC at follow up. Pt asymptomatic. Continue iron and folate supplementation. DVT ppx: per ortho aspirin 81 BID Thank you for the oppportunity to participate in the care of this patient. This patient was seen by Jabari Ivan PA-C under the supervision of Doctor Roxanne <Kings Oliveira E - Last Filed: 04/22/20 12:58> Vitals/I&O's: Vital Signs Temp Pulse Resp BP Pulse Ox 98.0 F 75 18 131/81 H 97 04/22/20 09:40 04/22/20 09:52 04/22/20 09:40 04/22/20 09:40 04/22/20 09:40 Oxygen Flow Rate (L/min) 6 Oxygen Delivery Method Room Air Weight: 120 lb 5.958 oz Body Mass Index (BMI) 22.0 Intake and Output for Last 24 Hours 04/20/20 04/21/20 04/22/20 23:59 23:59 23:59 Intake Total 4963.83 / 4963.83 2335.42 / 2335.42 Output Total 500 / 700 800 / 800 Balance 4463.83 / 4263.83 1535.42 / 1535.42 Microbiology Past 72 Hours 04/20/20 09:15 Interface Orders SARS-CoV-2 Antigen (Rapid) - Final Laboratory Results 04/21/20 15:21: Sodium 142, Potassium 3.4 L, Chloride 114 H, Carbon Dioxide 20.0 L, Anion Gap 8, BUN 11, Creatinine 0.76, Estim Creat Clear Calc 74.71, Est GFR (MDRD) Af Amer 106, Est GFR (MDRD) Non-Af 88, BUN/Creatinine Ratio 14.4, Glucose 228 H, Calcium 7.9 L 04/22/20 06:25: WBC 13.3 H, RBC 3.06 L, Hgb 7.7 L, Hct 25.0 L, MCV 81.7, MCH 25.2 L, MCHC 30.8 L, RDW Std Deviation 47.1 H, RDW Coeff of Josh 15.7 H, Plt Count 299, MPV 10.3 04/22/20 06:25: Sodium 142, Potassium 3.4 L, Chloride 113 H, Carbon Dioxide 23.0, Anion Gap 6, BUN 11, Creatinine 0.54 L, Estim Creat Clear Calc 105.15, Est GFR (MDRD) Af Amer 156, Est GFR (MDRD) Non-Af 129, BUN/Creatinine Ratio 20.2 H, Glucose 102, Calcium 7.6 L Current Medications Acetaminophen (Acetaminophen 500 Mg Tablet) 1,000 mg PO Q8 [facility] Last Admin: 04/22/20 05:20 Dose: 1,000 mg Documented by: Aspirin (Aspirin 81 Mg Tab.Chew) 81 mg PO BIDCM [facility] Last Admin: 04/22/20 09:52 Dose: 81 mg Documented by: Enteral Nutritional Formula (Ensure Surgery 237 Ml Liquid) 237 ml PO TIDCM [facility] Last Admin: 04/22/20 09:57 Dose: Not Given Documented by: Famotidine (Famotidine 20 Mg Tablet) 20 mg PO DAILY [facility] Last Admin: 04/22/20 09:56 Dose: 20 mg Documented by: Ferrous Sulfate (Ferrous Sulfate 325 Mg Tablet) 325 mg PO 1200,1700 [facility] Last Admin: 04/22/20 09:52 Dose: 325 mg Documented by: Folic Acid (Folic Acid 1 Mg Tablet) 1 mg PO DAILY@0800 [facility] Last Admin: 04/22/20 09:52 Dose: 1 mg Documented by: Ketorolac Tromethamine (Ketorolac 15 Mg/Ml Vial) 15 mg IV Q6H PRN PRN PRN Reason: Pain Score 1-5 Stop: 04/23/20 07:21 Last Admin: 04/22/20 06:15 Dose: 15 mg Documented by: Leflunomide (Leflunomide 10 Mg Tablet) 20 mg PO DAILY [facility] Last Admin: 04/22/20 09:52 Dose: 20 mg Documented by: Lisinopril (Lisinopril 20 Mg Tablet) 20 mg PO DAILY [facility] Last Admin: 04/22/20 09:57 Dose: 20 mg Documented by: Meloxicam (Meloxicam 7.5 Mg Tablet) 7.5 mg PO BID [facility] Metoprolol Tartrate (Metoprolol Tartrate 50 Mg Tablet) 50 mg PO BID [facility] Last Admin: 04/22/20 09:52 Dose: 50 mg Documented by: Morphine Sulfate (Morphine 2 Mg/Ml Syringe) 2 - 4 mg IV Q2H PRN PRN PRN Reason: Pain Score 6-10 Morphine Sulfate (Morphine 4 Mg/Ml Syringe) 2 - 4 mg IV Q2H PRN PRN PRN Reason: Pain Score 6-10 Ondansetron HCl (Ondansetron 4 Mg/2 Ml Vial) 4 mg IV Q8H PRN PRN PRN Reason: NAUSEA Oxycodone HCl (Oxycodone 5 Mg Tablet) 5 - 10 mg PO Q4H PRN PRN PRN Reason: Pain Score 4-10 Last Admin: 04/22/20 11:01 Dose: 5 mg Documented by: Prednisone (Pred[facility] 5 Mg Tablet) [facility] Last Admin: 04/22/20 09:57 Dose: 5 mg Documented by: Promethazine HCl (Promethazine 25 Mg/Ml Syringe) 12.5 mg IM Q6H PRN PRN; Protocol PRN Reason: NAUSEA/VOMITING Senna/Docusate Sodium (Senna/Docusate Sodium 1 Tablet) 2 tablet PO BID [facility] Last Admin: 04/22/20 09:57 Dose: 2 tablet Documented by: Sertraline HCl (Sertraline 50 Mg Tablet) 50 mg PO DAILY [facility] Last Admin: 04/22/20 09:56 Dose: 50 mg Documented by: Sodium Chloride (0.9% Nacl Peripheral Flush Adult/Peds) 5 - 15 ml IV UD PRN PRN Reason: SALINE FLUSH Last Admin: 04/22/20 06:16 Dose: 10 ml Documented by: Sodium Chloride (0.9% Saline Lock 10 Ml Syringe) 10 - 40 ml IV UD PRN PRN Reason: SALINE FLUSH STROKE Vital Signs/Narrative: Vital Signs Temp Pulse Resp BP Pulse Ox 04/22/20 09:52 75 04/22/20 09:40 98.0 F 80 18 131/81 H 97 Assessment/Plan Hospitalist note: I am seeing this patient in conjunction with Jabari Ivan. I independently seen and examined the patient. Progress note above, laboratory data and imaging studies reviewed and I concur with above plan. Patient underwent minimally invasive robotic assisted left knee replacement, postoperative day 1. Her pain is well controlled. Her vital signs are stable. Repeat CBC and BMP revealed hemoglobin of 7.7 g/dL which is down from 10.1 yesterday. Apparently, patient had decreased hemoglobin after prior surgeries. She is not actively bleeding, vital signs are stable. No indication for transfusion. Potassium is 3.4, replacement was ordered. She will history of rheumatoid arthritis, has been on long-term prednisone. Her vital signs are stable, no hypotension. Other chronic medical problems are stable. Patient can be discharged home on the same previous medications without any changes, continue prednisone at 5 mg p.o. daily. This note was generated with [employer] dictation software. It may contain incorrect words, spelling, and punctuation that were not noted in checking the note before signing. Inpatient E&M: 89756 Subs Hosp L2
--- NOTE | 2020-04-22 13:20 | CASEMGMT ---
RN BOB Face to Face with patient for initial transition planning/care coordination assessment. RN CM introduced self and role at [facility]. Patient lying in bed, alert and oriented, at bedside. Patient willing to participate in assessment and is able to answer all questions appropriately. Care providers, pharmacy, and demographics verified. Patient wishes to discharge home and is already setup with [facility] at home therapy. Patient states she has no further needs or concerns at this time. CM to follow for discharge planning needs that may arise. PCP: Amrita Specialists: [facility]: [facility] Insurance: [employer] Pres[employer] Benefit: [employer] Living Will/HPOA: none LNOK: Living Arrangements: Patient lives with in a 1 story home with no steps to enter. Patient states she is independent at home. Transportation: Driving service DME/HHC: Patient states she has raised toilet, cane, walker, and grab bars at home. Patient is scheduled for home therapy with [facility]. Disposition Plan: Patient to discharge home with home therapy, family support, and follow-up plans in place. Cristina STARKEY, RN, CM
[2020-04-22 14:45] VITALS: BP 116/77; PULSE 91; RESP 16; TEMP 36.6; O2SAT 95
--- NOTE | 2020-04-22 19:27 | NURSING ---
reviewed and agree with charting by Torrey Watkins, student nurse
== END 2020-04-22 16:27 | disposition home or self-care (01) ==
LOC: MS3 10:25 → SDC 10:26 → MS3 04-22 07:15
PROVIDERS: Anesthesiology; Internal Medicine; Admitting Provider Specialist; PCP Family Medicine; Referring Provider Specialist; Visit Provider Specialist
PROC: 0SRD0JZ Replacement of Left Knee Joint with Synthetic Substitute, Open Approach (ICD-10-PCS; CPT 27447; principal; 2020-04-21 10:00)
DX: M17.5 Other unilateral secondary osteoarthritis of knee (principal); M06.9 Rheumatoid arthritis, unspecified; Z20.828 Contact with and (suspected) exposure to other viral communicable diseases; F32.9 Major depressive disorder, single episode, unspecified; Z79.899 Other long term (current) drug therapy; I10 Essential (primary) hypertension; E87.6 Hypokalemia; Z79.52 Long term (current) use of systemic steroids; D64.9 Anemia, unspecified
CPT/HCPCS: 01400; 27447; 64447; S2900; 36415; 73560; 80048; 82962; 83735; 85025; 85027; 87081; 87426; 88305; 88311; 96361; 96365; 96366; 96375; 96376; 97110; 97162; 97166; 97530; 97535; 99218; 99251; C1776; C9803; J7120; A4216; G0378; G0379; G0463; J3475

== ENCOUNTER → 2020-05-05 12:04 | Outpatient (CLI) | payer SELFPAY ==
[2020-04-21 14:15] VITALS: BMI 22.0
--- NOTE | 2020-05-05 12:27 | VDLE_ITS ---
Reason For Study: Pain Procedure LEFT Exam performed in department. GSV is normal. A preliminary report was called and/or faxed CFV is compressible, spontaneous, phasic, to Eligio BROOKE. competent, and demonstrates normal augmentation. FV is compressible, spontaneous, phasic, competent and demonstrates normal augmentation. POP V is compressible, spontaneous, phasic, competent and demonstrates normal augmentation. T/P Trunk is compressible. PTV is compressible. LT PerV is compressible. Heterogeneous, non vascular structure noted Lt medial knee measuring 4.45cm x 6.51cm. Interpretation Summary There is no evidence of left lower extremity deep vein thrombosis. Left great saphenous vein appears patent and compressible segmentally. 4.87 x 6.63 cm left popliteal heterogenous structure, clinical correlation would be appropriate. No vascular flow noted. Ordering Physician: Eligio Schwarz Referring Physician: Palomo Brown Performed By: Anat Causey RDCS, RVT
[2020-05-05 12:37] LABS: Hematocrit 34.1 % (37-47); Mean Corp Hgb Conc 29.3 g/dL (32-36); Mean Corpuscular Hgb 24.3 pg (27.0-32.0); Mean Corpuscular Volume 82.8 fL (81-99); Mean Platelet Vol. 8.9 fl (6.2-12.0); Platelet Count 657 K/mm3 (150-450); RBC Distribution Width SD 50.8 fl (35.1-43.9); Red Blood Count 4.12 M/mm3 (4.2-5.4); White Blood Count 9.9 K/mm3 (4.4-11.0)
[2020-05-05 13:19] LABS: Anion Gap 9 (5-15); BUN 10 mg/dL (7-18); BUN/Creat Ratio 15.8 RATIO (10-20); Calcium,Total 9.3 mg/dL (8.5-10.1); Chloride 112 mmol/L (98-107); Creatinine, Serum 0.63 mg/dL (0.55-1.02); EST Glomerular Filtration Rate 109 mL/min (>60); Est Glom Filt Rate - Afr Amer 132 mL/min (>60); Glucose 122 mg/dL (74-106); Potassium 3.6 mmol/L (3.5-5.1); Sodium Level 140 mmol/L (136-145)
== END ==
PROVIDERS: PCP Family Medicine; Referring Provider Physician Assistant Surgical; Visit Provider Physician Assistant Surgical
DX: Z96.652 Presence of left artificial knee joint (principal); M79.662 Pain in left lower leg
CPT/HCPCS: 36415; 80048; 85027; 93971